=== PATIENT | male | born 1950 | race Caucasian/White ===

== ENCOUNTER 2016-10-10 09:35 | Inpatient (IN) | payer MEDICARE, MEDICAID ==
[~2016-10-10] VITALS: Ht 175.3 cm; Wt 74.0 kg
[2016-10-10 09:37] VITALS: BP 169/77; PULSE 77; RESP 16; TEMP 98.1; O2SAT 97
[2016-10-10 09:48] VITALS: BP 173/72; PULSE 85; RESP 16; O2SAT 97
[2016-10-10] MEDS ORDERED: LISI-515 PO (09:51)
--- NOTE | 2016-10-10 10:13 | PD ---
HPI Chief Complaint: Skin Problem Time Seen by Provider: 10:04 Travel History International Travel<30 days: No Contact w/Intl Traveler<30days: No Traveled to known affect area: No History of Present Illness HPI This is a 66-year-old male who has no reported past with history, presents today with complaints of right foot pain and swelling. The patient states he started experiencing redness and blistering of his right lower extremity. He states that he was seen and evaluated at [facility]. He reports they gave him 3 bags of antibiotics. He states that they discharged him and told him if he needed pain medications that he should come to [place]. He denies any fevers, chills. He reports increasing pain and swelling and increasing size of the blisters of his right foot. [facility] Past Medical History Diminished Hearing: No Integumentary: Yes Influenza Vaccination: No Past Surgical History Tonsillectomy: Yes Other Surgery: Yes (knee 2x-LEFT, I/D RECTAL ABSCESS, POLYPS REMOVED, VASECTOMY ) Social History Alcohol Use: Yes (4-6 beers daily ) Tobacco Use: Yes (1 PPD) Substance Use: Yes (MARIJUANA) Allergies-Medications (Allergen,Severity, Reaction): Coded Allergies: No Known Allergies (Verified , 10/10/16) Reported Meds & Prescriptions Reported Meds & Active Scripts Active Reported Lisinopril 20 Mg Tab 20 Mg PO DAILY Review of Systems Except as stated in HPI: all other systems reviewed are Neg General / Constitutional: No: Fever, Chills HENT: No: Headaches, Lightheadedness, Neck Pain Cardiovascular: No: Chest Pain or Discomfort, Palpitations Respiratory: No: Cough, Shortness of Breath Gastrointestinal: No: Nausea, Vomiting Genitourinary: No: Frequency, Dysuria Musculoskeletal: Positive: Pain (right foot and meza), No: Weakness Skin: Positive Lesions (blisters and redness to the right foot.), Positive Other (redness and warmth to the right foot and meza.) Neurologic: No: Weakness, Headache Physical Exam Narrative GENERAL: Well-developed well-nourished male in no acute respiratory distress. Patient is complaining of pain to his right lower extremity SKIN: Focused skin assessment warm/dry. HEAD: Atraumatic. Normocephalic. EYES: No scleral icterus. No injection or drainage. ENT: No nasal bleeding or discharge. Mucous membranes pink and moist. NECK: Trachea midline. Supple. CARDIOVASCULAR: Regular rate and rhythm. No murmur appreciated. RESPIRATORY: No accessory muscle use. Clear to auscultation. Breath sounds equal bilaterally. GASTROINTESTINAL: Abdomen soft, non-tender, nondistended. MUSCULOSKELETAL: No obvious deformities. On examination the patient's right lower extremity, there is diffuse redness and warmth to the right lower extremity from the foot to the mid meza. This has obvious cellulitis. There is also blistering noted to the dorsum of his foot. There is some serous sanguinous drainage noted. NEUROLOGICAL: Awake and alert. No obvious cranial nerve deficits. Motor grossly within normal limits. Normal speech. Data Data Last Documented VS Vital Signs Date Time Temp Pulse Resp B/P Pulse Ox O2 Delivery O2 Flow Rate FiO2 10/10/16 11:27 79 16 143/63 96 Room Air 10/10/16 09:37 98.1 Orders Basic Metabolic Panel (Bmp) (10/10/16 10:04) Complete Blood Count With Diff (10/10/16 10:04) Blood Culture (10/10/16 10:04) Iv Access Insert/Monitor (10/10/16 10:04) Ketorolac Inj (Toradol Inj) (10/10/16 10:15) Tetanus/Diphtheria Tox Adult (Tetanus/Di (10/10/16 10:15) Vancomycin Inj (Vancomycin Inj) (10/10/16 10:15) Admit Order (Ed Use Only) (10/10/16 12:46) Sodium Chlor 0.9% 1000 Ml Inj (Ns 1000 M (10/10/16 13:00) Labs Laboratory Tests Test 10/10/16 10:10 White Blood Count 33.9 TH/MM3 Red Blood Count 5.02 MIL/MM3 Hemoglobin 9.5 GM/DL Hematocrit 30.8 % Mean Corpuscular Volume 61.3 FL Mean Corpuscular Hemoglobin 18.8 PG Mean Corpuscular Hemoglobin 30.7 % Concent Red Cell Distribution Width 20.8 % Platelet Count 405 TH/MM3 Mean Platelet Volume 8.6 FL Neutrophils (%) (Auto) 88.5 % Lymphocytes (%) (Auto) 3.0 % Monocytes (%) (Auto) 8.2 % Eosinophils (%) (Auto) 0.1 % Basophils (%) (Auto) 0.2 % Neutrophils # (Auto) 30.0 TH/MM3 Lymphocytes # (Auto) 1.0 TH/MM3 Monocytes # (Auto) 2.8 TH/MM3 Eosinophils # (Auto) 0.0 TH/MM3 Basophils # (Auto) 0.1 TH/MM3 CBC Comment AUTO DIFF Differential Total Cells 100 Counted Neutrophils % (Manual) 64 % Band Neutrophils % 21 % Lymphocytes % 5 % Monocytes % 9 % Eosinophils % 1 % Neutrophils # (Manual) 28.8 TH/MM3 Differential Comment FINAL DIFF MANUAL Platelet Estimate NORMAL Platelet Morphology Comment NORMAL Red Cell Morphology Comment Sodium Level 128 MEQ/L Potassium Level 3.8 MEQ/L Chloride Level 93 MEQ/L Carbon Dioxide Level 22.8 MEQ/L Anion Gap 12 MEQ/L Blood Urea Nitrogen 3 MG/DL Creatinine 0.63 MG/DL Estimat Glomerular Filtration 127 ML/MIN Rate Random Glucose 98 MG/DL Calcium Level 9.0 MG/DL MDM Medical Decision Making Medical Screen Exam Complete: Yes Emergency Medical Condition: Yes Differential Diagnosis Worsening cellulitis medication reaction versus burn Narrative Course 66-year-old male who presents today with complaints of right lower extremity cellulitis. The patient was seen yesterday at [facility] and given antibiotics per patient. He reports that the swelling, redness and blistering has gotten worse. The patient's white blood cell count was 33,000. He's been given one dose of IVD vancomycin. He'll be admitted to the hospital for continued I V antibiotics. [facility] the [facility]. Patient was also noted to be hyponatremic. Normal saline was initiated in the emergency department. Sepsis Criteria SIRS Criteria (2 or more): Heart rate over 90, WBC > 85266, < 4000 or > 10% bands Sepsis Criteria (SIRS+source): Infect source susp/known Diagnosis Primary Impression: Cellulitis of right lower extremity Additional Impressions: Failure of outpatient treatment Tobacco abuse Hyponatremia Admitting Information Admitting Physician Requests: Admit Shawn Wolf MD Oct 10, 2016 10:13
[2016-10-10] MEDS ORDERED: TETANUS/DIPHTHERIA TOXOID ADULT 0.5 ML VIAL IM ONE (10:15)
[2016-10-10] MEDS ORDERED: KETOROLAC TROMETHAMINE 30 MG/ML (IVP) VIAL IVP ONE (10:15)
[2016-10-10] MEDS ORDERED: VANCOMYCIN INJ 1,000 MG in SODIUM CHLOR 0.9% 250 ML INJ 250 ML IV ONE (10:15)
[2016-10-10 10:40] LABS: BASOPHIL # 0.1 TH/MM3 (0-0.2); BASOPHIL % 0.2 % (0.0-2.0); EOSINOPHIL % 0.1 % (0.0-4.0); HEMATOCRIT 30.8 % (39.0-51.0); MEAN CELL VOLUME 61.3 FL (80.0-100.0); MEAN CORPUSCULAR HEMOGLOBIN 18.8 PG (27.0-34.0); MEAN CORPUSCULAR HGB CONC 30.7 % (32.0-36.0); MONO % 8.2 % (0.0-8.0); NEUT % 88.5 % (16.0-70.0); PLATELET COUNT 405 TH/MM3 (150-450); RED BLOOD COUNT 5.02 MIL/MM3 (4.50-5.90); RED CELL DISTRIBUTION WIDTH 20.8 % (11.6-17.2); WHITE BLOOD COUNT 33.9 TH/MM3 (4.0-11.0)
[2016-10-10 10:46] LABS: HEMO FLAGS AUTO DIFF
[2016-10-10 10:59] LABS: BICARBONATE 22.8 MEQ/L (21.0-32.0); POTASSIUM 3.8 MEQ/L (3.5-5.1)
[2016-10-10 11:13] LABS: BANDS 21 % (0-6); EOSINOPHILS 1 % (0-4); NEUTROPHIL # MANUAL DIFF 28.8 TH/MM3 (1.8-7.7); POLYS (SEG NEUTROPHILS) 64 % (16-70); WBC DIFF SAMPLE 100
[2016-10-10 11:15] LABS: PLATELET ESTIMATE SMEAR NORMAL (NORMAL); PLATELET MORPHOLOGY NORMAL (NORMAL); SCAN/DIFF FINAL DIFF MANUAL
[2016-10-10 11:27] VITALS: BP 143/63; PULSE 79; RESP 16; O2SAT 96
[2016-10-10] MEDS ORDERED: SODIUM CHLOR 0.9% 1000 ML INJ 1,000 ML IV SCH ×2 (12:59→13:00)
[2016-10-10] MEDS ORDERED: SODIUM CHLORIDE 0.9% FLUSH 10 ML FLUSH IV FLUSH PRN (13:00)
[2016-10-10] MEDS ORDERED: MAGNESIUM HYDROXIDE SUSP 30 ML CUP PO PRN (13:00)
[2016-10-10] MEDS ORDERED: RESP: ALBUTEROL 2.5 MG/IPRATROPIUM 0.5 MG NEB (PRN) NEB (13:00)
[2016-10-10] MEDS ORDERED: NALOXONE HCL 0.4 MG/ML AMP IV PRN (13:00)
[2016-10-10] MEDS ORDERED: ACETAMINOPHEN/HYDROcodone 325 MG/5 MG TAB PO PRN (13:00)
[2016-10-10] MEDS ORDERED: ONDANSETRON HCL 4 MG/2 ML VIAL IVP PRN (13:00)
[2016-10-10] MEDS ORDERED: ACETAMINOPHEN 325 MG TAB PO PRN ×2 (13:00)
[2016-10-10] MEDS: ENOXAPARIN SODIUM 30 MG/0.3 ML SYRINGE SQ SCH (13:44)
--- NOTE | 2016-10-10 14:09 | HHI.HP ---
[facility] Spenser Lacy MD Admission Diagnosis right lower extremity cellulitis. Leukocytosis. Hyponatremia. Diagnoses: (1) Cellulitis of right lower extremity (2) Failure of outpatient treatment (3) Benign hypertension Chief Complaint: Right lower extremity pain and swelling Travel History International Travel<30 Days: No Contact w/Intl Traveler <30 Da: No Traveled to Known Affected Are: No History of Present Illness 66-year-old male with a history of hypertension presented to the ED for evaluation of right lower extremity pain and swelling along with blister 4 days , was seen yesterday at an outside hospital and was treated with 3 bags of antibiotics and advised to seek medical attention to [facility] if no improvement. He reported worsening right lower extremity as well as redness and blister formations. The pain is throbbing and causing inability to put weight on his right lower extremity. Denies any febrile episode. He has no chest pain or shortness of breath. He also denies any trauma or insect bites. Review of Systems Except as stated in HPI: all other systems reviewed are Neg Past Family Social History Past Medical History Hypertension Past Surgical History Tonsillectomy: Yes knee 2x-LEFT, I/D RECTAL ABSCESS, POLYPS REMOVED, VASECTOMY Reported Medications Lisinopril 20 Mg Tab 20 Mg PO DAILY Allergies: Coded Allergies: No Known Allergies (Verified , 10/10/16) Family History Family history positive for diabetes type 2 Social History Alcohol Use: Yes (4-6 beers daily ) Tobacco Use: Yes (1 PPD) Substance Use: Yes (MARIJUANA) Physical Exam Vital Signs Vital Signs Date Time Temp Pulse Resp B/P Pulse Ox O2 Delivery O2 Flow Rate FiO2 10/10/16 11:27 79 16 143/63 96 Room Air 10/10/16 09:48 85 16 173/72 97 Room Air 10/10/16 09:37 98.1 77 16 169/77 97 Physical Exam GENERAL: This is a well-nourished, well-developed patient, in no apparent distress. SKIN: Right lower extremity with blisters and erythema HEAD: Atraumatic. Normocephalic. No temporal or scalp tenderness. EYES: Pupils equal round and reactive. Extraocular motions intact. No scleral icterus. No injection or drainage. ENT: Nose without bleeding, purulent drainage or septal hematoma. Throat without erythema, tonsillar hypertrophy or exudate. Uvula midline. Airway patent. NECK: Trachea midline. No JVD or lymphadenopathy. Supple, nontender, no meningeal signs. CARDIOVASCULAR: Regular rate and rhythm with II/ JADE RESPIRATORY: Clear to auscultation. Breath sounds equal bilaterally. No wheezes , rales, or rhonchi. GASTROINTESTINAL: Abdomen soft, non-tender, nondistended. No hepato-splenomegaly , or palpable masses. No guarding. MUSCULOSKELETAL: Extremities without clubbing, cyanosis, or edema. No joint tenderness, effusion, or edema noted. No calf tenderness. Negative Homans sign bilaterally. NEUROLOGICAL: Awake and alert. Cranial nerves II through XII intact. Motor and sensory grossly within normal limits. Five out of 5 muscle strength in all muscle groups. Normal speech. Laboratory Laboratory Tests Test 10/10/16 10/10/16 10:10 13:00 White Blood Count 33.9 Red Blood Count 5.02 Hemoglobin 9.5 Hematocrit 30.8 Mean Corpuscular Volume 61.3 Mean Corpuscular Hemoglobin 18.8 Mean Corpuscular Hemoglobin 30.7 Concent Red Cell Distribution Width 20.8 Platelet Count 405 Mean Platelet Volume 8.6 Neutrophils (%) (Auto) 88.5 Lymphocytes (%) (Auto) 3.0 Monocytes (%) (Auto) 8.2 Eosinophils (%) (Auto) 0.1 Basophils (%) (Auto) 0.2 Neutrophils # (Auto) 30.0 Lymphocytes # (Auto) 1.0 Monocytes # (Auto) 2.8 Eosinophils # (Auto) 0.0 Basophils # (Auto) 0.1 CBC Comment AUTO DIFF Differential Total Cells 100 Counted Neutrophils % (Manual) 64 Band Neutrophils % 21 Lymphocytes % 5 Monocytes % 9 Eosinophils % 1 Neutrophils # (Manual) 28.8 Differential Comment FINAL DIFF MANUAL Platelet Estimate NORMAL Platelet Morphology Comment NORMAL Red Cell Morphology Comment Sodium Level 128 Potassium Level 3.8 Chloride Level 93 Carbon Dioxide Level 22.8 Anion Gap 12 Blood Urea Nitrogen 3 Creatinine 0.63 Estimat Glomerular Filtration 127 Rate Random Glucose 98 Calcium Level 9.0 Lactic Acid Level 1.4 Date/Time Procedure Status Source Growth 10/10/16 10:10 Aerobic Blood Culture Received Blood Peripheral Pending 10/10/16 10:10 Anaerobic Blood Culture Received Blood Peripheral Pending Result Diagram: 10/10/16 1010 10/10/16 1010 Assessment and Plan Problem List: (1) Cellulitis of right lower extremity ICD Code: L03.115 Status: Acute (2) Failure of outpatient treatment ICD Code: Z78.9 Status: Acute (3) Benign hypertension ICD Code: I10 Status: Acute (4) Tobacco abuse ICD Code: Z72.0 Status: Acute (5) Tobacco abuse counseling ICD Code: Z71.6 Status: Acute (6) Normocytic normochromic anemia ICD Code: D64.9 Status: Acute Assessment and Plan 66-year-old man with Cellulitis right lower extremity Failed outpatient therapy Start vancomycin and cefepime IV Check right lower extremity ultrasound Parenteral pain medication when necessary Tobacco abuse Tobacco counseling provided Start nicotine patch Normochromic normocytic anemia of chronic disease Monitor H&H Benign hypertension Resume outpatient medication including lisinopril DVT prophylaxis: Lovenox Code Status Full code Discussed Condition With Patient, ED physician Physician Certification 2 Midnight Certification Type: Admission for Inpatient Services Order for Inpatient Services The services are ordered in accordance with Medicare regulations or non- Medicare payer requirements, as applicable. In the case of services not specified as inpatient-only, they are appropriately provided as inpatient services in accordance with the 2-midnight benchmark. Estimated LOS (days): 2 days is the estimated time the patient will need to remain in the hospital, assuming treatment plan goals are met and no additional complications. Post-Hospital Plan: Not yet determined Ben Rubio MD Oct 10, 2016 14:09
[2016-10-10 14:40] VITALS: BP 178/81; PULSE 92; RESP 20; TEMP 98.4; O2SAT 99
[2016-10-10] MEDS ORDERED: MORPHINE SULFATE 4 MG/ML INJ IV PUSH PRN (14:45)
[2016-10-10] MEDS: REMOVE OLD PATCH T-DERMAL SCH (14:45)
[2016-10-10] MEDS: CEFEPIME INJ 2,000 MG in SODIUM CHLORIDE 0.9% INJ 100 ML IV SCH (15:52)
[2016-10-10] MEDS: NICOTINE 21 MG/24 HR PATCH T-DERMAL SCH (15:52)
[2016-10-10 16:00] VITALS: BP 177/75; PULSE 99; RESP 20; TEMP 99; O2SAT 99
--- NOTE | 2016-10-10 17:36 | RADRPT ---
EXAM DATE/TIME: 10/10/2016 16:59 [facility] COMPARISON: No previous studies available for comparison. INDICATIONS : Right leg fluid collection. MEDICAL HISTORY : Substance use. Alcohol use. Tobacco use. SURGICAL HISTORY : Tonsillectomy. Left knee x2. I/D rectal abscess. Polyps removed. Vasectomy. ENCOUNTER: Initial ACUITY: 4-6 days PAIN SCORE: 6/10 LOCATION: Right foot. AREA EVALUATED: Right anterior foot. FINDINGS: Ultrasound was targeted to an area of swelling dorsal aspect of the foot. There is thickening of the soft tissues and edematous appearance with out a discrete or measurable fluid collection. On color Doppler, there is only mild flow seen in the soft tissues. CONCLUSION: Swallow thick and dorsal soft tissues without focal drainable fluid collection. Dean Mercer MD on October 10, 2016 at 17:32 Board Certified Radiologist. This report was verified electronically.
[2016-10-10] MEDS: ENALAPRILAT 1.25 MG/ML VIAL IV PUSH PRN (18:07)
[2016-10-10 20:00] VITALS: BP 156/70; PULSE 97; RESP 17; TEMP 99.5; O2SAT 96
[2016-10-10] MEDS: SODIUM CHLORIDE 0.9% FLUSH 10 ML FLUSH IV FLUSH SCH (20:05)
[2016-10-10] MEDS: LACTOBACILLUS ACIDOPHILUS TAB PO SCH (20:05)
[2016-10-11] VITALS (8 sets, daily range): BP systolic 126–174; BP diastolic 60–76; PULSE 76–98; RESP 18–20; TEMP 98.1–101.2; O2SAT 90–96
[2016-10-11] MEDS: CEFEPIME INJ 2,000 MG in SODIUM CHLORIDE 0.9% INJ 100 ML IV SCH ×2 (02:43→16:04)
[2016-10-11] MEDS ORDERED: Vancomycin Consult Pharmacy 1 EA OTHER SCH (07:45)
[2016-10-11 08:15] LABS: AUTOMATED NEUTROPHIL # 24.7 TH/MM3 (1.8-7.7); BASOPHIL # 0.3 TH/MM3 (0-0.2); BASOPHIL % 1.2 % (0.0-2.0); EOSINOPHIL # 0.1 TH/MM3 (0-0.4); EOSINOPHIL % 0.3 % (0.0-4.0); HEMATOCRIT 26.3 % (39.0-51.0); LYMPH % 2.9 % (9.0-44.0); LYMPHOCYTE # 0.8 TH/MM3 (1.0-4.8); MEAN CORPUSCULAR HEMOGLOBIN 18.9 PG (27.0-34.0); MONO % 8.8 % (0.0-8.0); NEUT % 86.8 % (16.0-70.0); PLATELET COUNT 382 TH/MM3 (150-450); RED BLOOD COUNT 4.32 MIL/MM3 (4.50-5.90); RED CELL DISTRIBUTION WIDTH 20.9 % (11.6-17.2); WHITE BLOOD COUNT 28.5 TH/MM3 (4.0-11.0)
[2016-10-11] MEDS: LACTOBACILLUS ACIDOPHILUS TAB PO SCH ×2 (08:16→21:33)
[2016-10-11] MEDS: LISINOPRIL 20 MG TAB PO SCH (08:16)
[2016-10-11] MEDS: REMOVE OLD PATCH T-DERMAL SCH (08:17)
[2016-10-11] MEDS: NICOTINE 21 MG/24 HR PATCH T-DERMAL SCH (08:17)
[2016-10-11] MEDS: SODIUM CHLORIDE 0.9% FLUSH 10 ML FLUSH IV FLUSH SCH ×2 (08:20→21:33)
[2016-10-11 08:27] LABS: HEMO FLAGS AUTO DIFF
[2016-10-11 08:49] LABS: ALT (GPT) 11 U/L (12-78); ANION GAP 11 MEQ/L (5-15); AST (GOT) 9 U/L (15-37); BICARBONATE 24.5 MEQ/L (21.0-32.0); BLOOD UREA NITROGEN 4 MG/DL (7-18); CHLORIDE 96 MEQ/L (98-107); GLOMERULAR FILTRATION RATE 163 ML/MIN (>89); POTASSIUM 3.2 MEQ/L (3.5-5.1); SODIUM (NA) 131 MEQ/L (136-145)
[2016-10-11 08:51] LABS: ALKALINE PHOSPHATASE 97 U/L (45-117); TOTAL BILIRUBIN ADULT 0.5 MG/DL (0.2-1.0)
[2016-10-11 09:09] LABS: BANDS 17 % (0-6); NEUTROPHIL # MANUAL DIFF 26.8 TH/MM3 (1.8-7.7); POLYS (SEG NEUTROPHILS) 77 % (16-70); WBC DIFF SAMPLE 100
[2016-10-11 09:10] LABS: ACANTHOCYTES OCC (NORMAL)
[2016-10-11 09:11] LABS: PLATELET ESTIMATE SMEAR HIGH (NORMAL); PLATELET MORPHOLOGY ENLARGED (NORMAL); SCAN/DIFF FINAL DIFF MANUAL
[2016-10-11] MEDS: VANCOMYCIN INJ 1,250 MG in SODIUM CHLOR 0.9% 250 ML INJ 250 ML IV SCH ×2 (10:28→21:35)
[2016-10-11] MEDS: ACETAMINOPHEN/HYDROcodone 325 MG/7.5 MG TAB PO PRN ×2 (10:29→16:04)
--- NOTE | 2016-10-11 13:56 | HHI.PR ---
Subjective Remarks Follow-up cellulitis right foot 10/11/16-patient seen and examined him a report improvement of right foot swelling and pain as well as redness. Currently afebrile. Objective Vitals Vital Signs Date Time Temp Pulse Resp B/P Pulse Ox O2 Delivery O2 Flow Rate FiO2 10/11/16 10:19 92 10/11/16 08:00 98.8 86 20 174/76 95 10/11/16 04:00 99.7 94 18 126/60 96 10/11/16 00:00 98.1 79 18 130/61 96 10/10/16 20:00 99.5 97 17 156/70 96 10/10/16 16:00 99.0 99 20 177/75 99 10/10/16 14:40 98.4 92 20 178/81 99 I/O 10/10/16 10/10/16 10/10/16 10/11/16 10/11/16 10/11/16 07:00 15:00 23:00 07:00 15:00 23:00 Intake Total 480 ml 240 ml Output Total 250 ml 700 ml Balance 230 ml -460 ml Intake Oral 480 ml 240 ml Output Urine Total 250 ml 700 ml Result Diagram: 10/11/16 0755 10/11/16 0755 Imaging Last Impressions Lower Extremity Ultrasound 10/10/16 0000 Signed Impressions: Service Date/Time: Monday, October 10, 2016 16:59 - CONCLUSION: Swallow thick and dorsal soft tissues without focal drainable fluid collection. Dean Mercer MD Objective Remarks GENERAL: NAD SKIN: Warm and dry.Right lower extremity with blisters and erythema HEAD: Normocephalic. EYES: No scleral icterus. No injection or drainage. NECK: Supple, trachea midline. No JVD or lymphadenopathy. CARDIOVASCULAR: Regular rate and rhythm without murmurs, gallops, or rubs. RESPIRATORY: Breath sounds equal bilaterally. No accessory muscle use. GASTROINTESTINAL: Abdomen soft, non-tender, nondistended. MUSCULOSKELETAL: No cyanosis, or edema. BACK: Nontender without obvious deformity. No CVA tenderness. A/P Problem List: (1) Cellulitis of right lower extremity ICD Code: L03.115 Status: Acute (2) Failure of outpatient treatment ICD Code: Z78.9 Status: Acute (3) Benign hypertension ICD Code: I10 Status: Acute (4) Tobacco abuse ICD Code: Z72.0 Status: Acute (5) Tobacco abuse counseling ICD Code: Z71.6 Status: Acute (6) Normocytic normochromic anemia ICD Code: D64.9 Status: Acute Assessment and Plan 66-year-old man with Cellulitis right lower extremity Failed outpatient therapy Continue vancomycin and cefepime IV Right lower extremity ultrasound noted and reviewed by me with finding of Swallow thick and dorsal soft tissues without focal drainable fluid collection. Parenteral pain medication when necessary Leukocytosis improving Tobacco abuse Tobacco counseling provided Continue nicotine patch Normochromic normocytic anemia of chronic disease Monitor H&H Benign hypertension Continue outpatient medication including lisinopril Hypokalemia Give potassium 60 mEq 1 now and monitor DVT prophylaxis: Ben Doherty MD Oct 11, 2016 13:56
[2016-10-11] MEDS ORDERED: POTASSIUM CHLORIDE 20 MEQ CONTROLLED RELEASE TAB PO ONE (14:00)
[2016-10-11] MEDS: ENOXAPARIN SODIUM 30 MG/0.3 ML SYRINGE SQ SCH (16:04)
[2016-10-11] MEDS: ENALAPRILAT 1.25 MG/ML VIAL IV PUSH PRN (23:16)
[2016-10-12] MEDS: CEFEPIME INJ 2,000 MG in SODIUM CHLORIDE 0.9% INJ 100 ML IV SCH ×2 (02:49→14:44)
[2016-10-12 04:55] VITALS: BP 154/70; PULSE 84; RESP 18; TEMP 98.2; O2SAT 90
[2016-10-12 06:59] LABS: AUTOMATED NEUTROPHIL # 21.7 TH/MM3 (1.8-7.7); BASOPHIL # 0.3 TH/MM3 (0-0.2); BASOPHIL % 1.3 % (0.0-2.0); EOSINOPHIL # 0.2 TH/MM3 (0-0.4); EOSINOPHIL % 0.7 % (0.0-4.0); HEMATOCRIT 27.8 % (39.0-51.0); MEAN CELL VOLUME 60.2 FL (80.0-100.0); MEAN CORPUSCULAR HEMOGLOBIN 18.9 PG (27.0-34.0); MEAN CORPUSCULAR HGB CONC 31.4 % (32.0-36.0); PLATELET COUNT 400 TH/MM3 (150-450); RED BLOOD COUNT 4.62 MIL/MM3 (4.50-5.90); WHITE BLOOD COUNT 25.6 TH/MM3 (4.0-11.0)
[2016-10-12 07:01] LABS: HEMO FLAGS AUTO DIFF
[2016-10-12 07:22] LABS: BICARBONATE 26.8 MEQ/L (21.0-32.0); POTASSIUM 3.7 MEQ/L (3.5-5.1)
[2016-10-12 08:00] VITALS: BP 177/74; PULSE 85; RESP 19; TEMP 99.4; O2SAT 90
[2016-10-12] MEDS: LACTOBACILLUS ACIDOPHILUS TAB PO SCH ×2 (08:02→19:47)
[2016-10-12] MEDS: NICOTINE 21 MG/24 HR PATCH T-DERMAL SCH (08:02)
[2016-10-12] MEDS: SODIUM CHLORIDE 0.9% FLUSH 10 ML FLUSH IV FLUSH SCH ×2 (08:02→19:47)
[2016-10-12] MEDS: REMOVE OLD PATCH T-DERMAL SCH (08:02)
[2016-10-12] MEDS: LISINOPRIL 20 MG TAB PO SCH (08:02)
[2016-10-12 08:33] LABS: PLATELET ESTIMATE SMEAR HIGH (NORMAL); SPHEROCYTES 1+ (NORMAL)
[2016-10-12 08:34] LABS: PLATELET MORPHOLOGY ENLARGED (NORMAL); SCAN/DIFF AUTO DIFF CONFIRMED
[2016-10-12] MEDS: VANCOMYCIN INJ 1,250 MG in SODIUM CHLOR 0.9% 250 ML INJ 250 ML IV SCH ×2 (09:15→19:53)
[2016-10-12] MEDS: ENALAPRILAT 1.25 MG/ML VIAL IV PUSH PRN (09:50)
[2016-10-12 12:00] VITALS: BP 181/84; PULSE 96; RESP 19; TEMP 100.7; O2SAT 90
--- NOTE | 2016-10-12 12:32 | HHI.PR ---
Subjective Remarks Follow-up cellulitis right foot 10/11/16-patient seen and examined him a report improvement of right foot swelling and pain as well as redness. Currently afebrile. 10/12/16-patient seen and examined, Tmax 101.2 at 11 PM however currently afebrile. Reports significant decrease in lower extremity swelling as well as pain. Objective Vitals Vital Signs Date Time Temp Pulse Resp B/P Pulse Ox O2 Delivery O2 Flow Rate FiO2 10/12/16 08:00 99.4 85 19 177/74 90 10/12/16 04:55 98.2 84 18 154/70 90 10/11/16 23:00 101.2 98 18 173/73 90 10/11/16 21:06 99.8 82 18 170/76 10/11/16 16:00 98.4 80 20 146/66 95 I/O 10/11/16 10/11/16 10/11/16 10/12/16 10/12/16 10/12/16 07:00 15:00 23:00 07:00 15:00 23:00 Intake Total 240 ml 840 ml Output Total 700 ml 1525 ml 425 ml 450 ml Balance -460 ml -685 ml -425 ml -450 ml Intake Oral 240 ml 840 ml Output Urine Total 700 ml 1525 ml 425 ml 450 ml Result Diagram: 10/12/16 0646 10/12/16 0646 Imaging Last Impressions Lower Extremity Ultrasound 10/10/16 0000 Signed Impressions: Service Date/Time: Monday, October 10, 2016 16:59 - CONCLUSION: Swallow thick and dorsal soft tissues without focal drainable fluid collection. Dean Mercer MD Objective Remarks GENERAL: NAD SKIN: Warm and dry.Right lower extremity with blisters and erythema HEAD: Normocephalic. EYES: No scleral icterus. No injection or drainage. NECK: Supple, trachea midline. No JVD or lymphadenopathy. CARDIOVASCULAR: Regular rate and rhythm without murmurs, gallops, or rubs. RESPIRATORY: Breath sounds equal bilaterally. No accessory muscle use. GASTROINTESTINAL: Abdomen soft, non-tender, nondistended. MUSCULOSKELETAL: No cyanosis, or edema. BACK: Nontender without obvious deformity. No CVA tenderness. A/P Problem List: (1) Cellulitis of right lower extremity ICD Code: L03.115 Status: Acute (2) Failure of outpatient treatment ICD Code: Z78.9 Status: Acute (3) Benign hypertension ICD Code: I10 Status: Acute (4) Tobacco abuse ICD Code: Z72.0 Status: Acute (5) Tobacco abuse counseling ICD Code: Z71.6 Status: Acute (6) Normocytic normochromic anemia ICD Code: D64.9 Status: Acute Assessment and Plan 66-year-old man with Cellulitis right lower extremity Failed outpatient therapy Continue vancomycin and cefepime IV pending culture report Right lower extremity ultrasound with finding of Swallow thick and dorsal soft tissues without focal drainable fluid collection. Parenteral pain medication when necessary Leukocytosis improving Tobacco abuse Tobacco counseling provided Continue nicotine patch Normochromic normocytic anemia of chronic disease Monitor H&H Benign hypertension-labile BP Start low-dose Lopressor 25 mg every 12H and continue lisinopril Hypokalemia Resolved post treatment DVT prophylaxis: Ben Doherty MD Oct 12, 2016 12:32
[2016-10-12] MEDS: ENOXAPARIN SODIUM 30 MG/0.3 ML SYRINGE SQ SCH (12:54)
[2016-10-12] MEDS: METOPROLOL TARTRATE 25 MG TAB PO SCH ×2 (12:54→19:46)
[2016-10-12] MEDS ORDERED: FUROSEMIDE 20 MG/2 ML VIAL IV PUSH ONE (14:00)
[2016-10-12] MEDS: ACETAMINOPHEN/HYDROcodone 325 MG/7.5 MG TAB PO PRN (14:51)
[2016-10-12 16:55] VITALS: BP 164/79; PULSE 75; RESP 19; TEMP 97.2; O2SAT 95
[2016-10-12 20:27] VITALS: BP 182/85; PULSE 76; RESP 16; TEMP 98.2; O2SAT 90
[2016-10-12] MEDS ORDERED: PHARMACY ORDERED LAB ONE (20:45)
[2016-10-13 00:33] VITALS: BP 173/77; PULSE 82; RESP 18; TEMP 97.8; O2SAT 95
[2016-10-13] MEDS: ENALAPRILAT 1.25 MG/ML VIAL IV PUSH PRN (00:40)
[2016-10-13] MEDS: CEFEPIME INJ 2,000 MG in SODIUM CHLORIDE 0.9% INJ 100 ML IV SCH ×2 (03:14→14:52)
[2016-10-13] MEDS: VANCOMYCIN INJ 1,250 MG in SODIUM CHLOR 0.9% 250 ML INJ 250 ML IV SCH ×2 (03:14→12:16)
[2016-10-13] MEDS: ACETAMINOPHEN/HYDROcodone 325 MG/7.5 MG TAB PO PRN ×4 (04:57→18:54)
[2016-10-13 05:27] VITALS: BP 165/76; PULSE 83; RESP 18; TEMP 99; O2SAT 95
[2016-10-13] MEDS: LACTOBACILLUS ACIDOPHILUS TAB PO SCH ×2 (08:21→22:00)
[2016-10-13] MEDS: SODIUM CHLORIDE 0.9% FLUSH 10 ML FLUSH IV FLUSH SCH ×2 (08:22→22:09)
[2016-10-13] MEDS: METOPROLOL TARTRATE 25 MG TAB PO SCH ×2 (08:22→22:00)
[2016-10-13] MEDS: LISINOPRIL 20 MG TAB PO SCH (08:22)
[2016-10-13] MEDS: NICOTINE 21 MG/24 HR PATCH T-DERMAL SCH (08:22)
[2016-10-13] MEDS: REMOVE OLD PATCH T-DERMAL SCH (08:24)
[2016-10-13 08:31] VITALS: BP 169/79; PULSE 72; RESP 16; TEMP 97.3
[2016-10-13] MEDS ORDERED: SOD PHOSPHATE/SOD BIPHOSPHATE (ADULT) ENEMA 133ML RECTAL ONE (11:15)
--- NOTE | 2016-10-13 11:27 | HHI.PR ---
Subjective Remarks Follow-up for right foot/ankle infection Patient has no complaints. He is asking for enema. He stated that he does well with enemas. He does not want take any oral medication for constipation. He stated that the swelling has improved in his right foot. Otherwise he remains afebrile he has no complaints. Objective Vitals Vital Signs Date Time Temp Pulse Resp B/P Pulse Ox O2 Delivery O2 Flow Rate FiO2 10/13/16 08:31 97.3 72 16 169/79 10/13/16 05:27 99.0 83 18 165/76 95 10/13/16 00:33 97.8 82 18 173/77 95 10/12/16 20:27 98.2 76 16 182/85 90 10/12/16 16:55 97.2 75 19 164/79 95 10/12/16 12:00 100.7 96 19 181/84 90 I/O 10/12/16 10/12/16 10/12/16 10/13/16 10/13/16 10/13/16 06:59 14:59 22:59 06:59 14:59 22:59 Intake Total 840 ml 730 ml 720 ml Output Total 425 ml 850 ml 1170 ml 900 ml 300 ml Balance -425 ml -10 ml -440 ml -180 ml -300 ml Intake Oral 480 ml 600 ml 720 ml IV Total 360 ml 130 ml Output Urine Total 425 ml 850 ml 1170 ml 900 ml 300 ml # Voids 5 # Bowel Movements 0 0 Result Diagram: 10/12/1646 10/12/16645 Objective Remarks GENERAL: NAD SKIN: Warm and dry.Right lower extremity with blisters and erythema. Ecchymosis of the right foot. Positive tenderness to palpation but that has improved. CARDIOVASCULAR: Regular rate and rhythm without murmurs, gallops, or rubs. RESPIRATORY: Breath sounds equal bilaterally. No accessory muscle use. GASTROINTESTINAL: Abdomen soft, non-tender, nondistended. Medications and IVs Current Medications Ketorolac Tromethamine (Toradol Inj) 30 mg ONCE ONCE IVP Last administered on 10/10/16 10:48; Start 10/10/16 at 10:15; Stop 10/10/16 at 10:16; Status DC Tetanus/ Diphtheria Toxoids 0.5 ml 0.5 ml ONCE ONCE IM Last administered on 10:56; Start 10/10/16 at 10:15; Stop 10/10/16 at 10:16; Status DC Vancomycin HCl 1000 mg/Sodium Chloride 250 ml @ 250 mls/hr ONCE ONCE IV Last administered on 10/10/16 10:47; Start 10/10/16 at 10:15; Stop 10/10/16 at 11:14 ; Status DC Sodium Chloride 1,000 ml @ 125 mls/hr Q8H IV Last administered on 10/10/16 12 :55; Start 10/10/16 at 13:00; Stop 10/10/16 at 13:06; Status DC Sodium Chloride (NS 1000 ml Inj) 1,000 ml @ 70 mls/hr [id number] IV Last administered on 10/10/16 13:44; Start 10/10/16 at 12:59; Stop 10/10/16 at 14:37 ; Status DC Sodium Chloride (NS Flush) 2 ml UNSCH PRN IV FLUSH FLUSH AFTER USING IV ACCESS ; Start 10/10/16 at 13:00 Sodium Chloride (NS Flush) 2 ml BID IV FLUSH Last administered on 10/12/16 19: 47; Start 10/10/16 at 21:00 Acetaminophen (Tylenol) 650 mg Q4H PRN PO TEMP > 100.4 Last administered on 23:15; Start 10/10/16 at 13:00 Ondansetron HCl (Zofran Inj) 4 mg Q6H PRN IVP NAUSEA OR VOMITING Last administered on 10/13/16 00:40; Start 10/10/16 at 13:00 Enoxaparin Sodium (Lovenox Inj) 30 mg Q24H SQ Last administered on 10/12/16 12 :54; Start 10/10/16 at 13:00 Acetaminophen (Tylenol) 650 mg Q6H PRN PO PAIN SCALE 1 TO 2; Start 10/10/16 at 13:00 Acetaminophen/ Hydrocodone Bitart ([place] 5-325 Mg) 1 tab Q4H PRN PO PAIN SCALE 3 TO 5 Last administered on 10/10/16 18:07; Start 10/10/16 at 13:00 Acetaminophen/ Hydrocodone Bitart ([place] 7.5-325 Mg) 1 tab Q4H PRN PO PAIN SCALE 6 TO 10 Last administered on 10/13/16 04:57; Start 10/10/16 at 13:00 Naloxone HCl (Narcan Inj) 0.4 mg UNSCH PRN IV SEE LABEL COMMENTS; Start at 13:00 Magnesium Hydroxide (Milk Of [place] Liq) 30 ml Q12H PRN PO MILD - MODERATE CONSTIPATION; Start 10/10/16 at 13:00 Albuterol/ Ipratropium (Duoneb Neb) 1 ampule Q2HR NEB PRN NEB SOB/WHEEZING; Start 10/10/16 at 13:00 Enalaprilat (Vasotec Inj) 1.25 mg Q6H PRN IV PUSH SBP>160, DBP>90 Last administered on 10/13/16 00:40; Start 10/10/16 at 13:00 Lisinopril (Prinivil) 20 mg DAILY PO Last administered on 10/13/16 08:22; Start 10/11/16 at 09:00 Nicotine (Habitrol 21 Mg Patch.24 Hr) 1 patch DAILY T-DERMAL Last administered on 10/13/16 08:22; Start 10/10/16 at 14:45 Miscellaneous Information 1 DAILY T-DERMAL Last administered on 10/13/16 08:24 ; Start 10/10/16 at 14:45 Morphine Sulfate 2 mg 2 mg Q6H PRN IV PUSH BREAKTHROUGH PAIN; Start 10/10/16 at 14:45 Cefepime HCl/ Sodium Chloride (Maxipime Inj/NS Inj) 100 ml @ 200 mls/hr Q12H IV Last administered on 10/13/16 03:14; Start 10/10/16 at 15:00 Lactobacillus Acidophilus 1 tab 1 tab Q12HR PO Last administered on 10/13/16 08:21; Start 10/10/16 at 21:00 Pharmacy Profile Note 0 ml @ 0 mls/hr UNSCH OTHER ; Start 10/11/16 at 07:45 Vancomycin HCl/ Sodium Chloride (Vancomycin Inj/ NS 250 ml Inj) 262.5 ml @ 262.5 mls/ hr Q12H IV Last administered on 10/12/16 19:53; Start 10/11/16 at 09:00; Stop 10/12/16 at 22:25; Status DC Miscellaneous Information SPECIFIC LAB TO BE ... ONCE ONCE .XX Last administered on 10/12/16 19:52; Start 10/12/16 at 20:45; Stop 10/12/16 at 20:46 ; Status DC Potassium Chloride (KCl) 60 meq ONCE ONCE PO Last administered on 10/11/16 16 :04; Start 10/11/16 at 14:00; Stop 10/11/16 at 14:01; Status DC Metoprolol Tartrate (Lopressor) 25 mg Q12HR PO Last administered on 10/13/16 08:22; Start 10/12/16 at 13:00 Furosemide 20 mg 20 mg ONCE ONCE IV PUSH Last administered on 10/12/16 14:45 ; Start 10/12/16 at 14:00; Stop 10/12/16 at 14:01; Status DC Vancomycin HCl/ Sodium Chloride (Vancomycin Inj/ NS 250 ml Inj) 262.5 ml @ 262.5 mls/ hr Q8H IV Last administered on 10/13/16 03:14; Start 10/13/16 at 04 :00 Miscellaneous Information SPECIFIC LAB TO BE MARVA... ONCE ONCE .XX ; Start 10/13 at 19:45; Stop 10/13/16 at 19:46 A/P Problem List: (1) Cellulitis of right lower extremity ICD Code: L03.115 Status: Acute (2) Failure of outpatient treatment ICD Code: Z78.9 Status: Acute (3) Benign hypertension ICD Code: I10 Status: Acute (4) Tobacco abuse ICD Code: Z72.0 Status: Acute (5) Tobacco abuse counseling ICD Code: Z71.6 Status: Acute (6) Normocytic normochromic anemia ICD Code: D64.9 Status: Acute Assessment and Plan 66-year-old man with Cellulitis right lower extremity Failed outpatient therapy on vancomycin and cefepime IV, blood cultures are negative. Right lower extremity ultrasound with finding of Swallow thick and dorsal soft tissues without focal drainable fluid collection. Parenteral pain medication when necessary Leukocytosis improving Consult infectious disease due to the severity of the cellulitis. Tobacco abuse Tobacco counseling provided Continue nicotine patch Normochromic normocytic anemia of chronic disease Monitor H&H Stable. Benign hypertension-labile BP on Lopressor 25 mg every 12H and continue lisinopril Hypokalemia Resolved post treatment DVT prophylaxis: Lovenox Discharge Planning Patient requires IV antibiotics. Will consult infectious disease due to the severity of the cellulitis. Evelia Mccord MD Oct 13, 2016 11:27
[2016-10-13] MEDS: ENOXAPARIN SODIUM 30 MG/0.3 ML SYRINGE SQ SCH (12:16)
[2016-10-13] MEDS ORDERED: BISACODYL 10 MG SUPP RECTAL ONE (12:45)
[2016-10-13 16:00] VITALS: BP 158/77; PULSE 74; RESP 18; TEMP 98.5; O2SAT 91
--- NOTE | 2016-10-13 17:39 | PD.CONS ---
History of Present Illness Service Infectious disease Consult Requested By Dr Sp Mccord Reason for Consult Evaluate patient with severe infection of the right ankle and foot Primary Care Physician Spenser Lacy MD Diagnoses: History of Present Illness Patient seen and examined. Records reviewed. Patient is a 66-year-old male, presented to the hospital for further evaluation of increasing redness, pain, and development of a loose lesion on his ankle. His problems started about 5 days prior to admission when he started experiencing some pain on his right ankle. He didn't think much of it, but over the next several days she started noticing some swelling. One day prior to admission he noted some mild redness developing, with increasing swelling and pain. He had an area like a little hole on his lateral ankle. He went to [place] [facility], and he was given some IV antibiotics, and was instructed to go to any nearby hospital if his symptoms worsen. On the day of admission he continued to have the same swelling and pain, but with increasing redness, and he notices a bullous lesion on his right lateral malleolus. He did not have any fever or chills or sweats. He has not had any sore throat or respiratory complaint. No nausea or vomiting or any urinary complaints. Patient has not really done any wading in any water like a [place], river or beach. On presentation his white count was greater than 30,000. He had evidence of cellulitis with a large bulla on the right lateral malleolus. He had an ultrasound which did not show any fluid collection. Patient was started on vancomycin and cefepime. Blood cultures were negative. Patient stated that his right lower extremity has improved as far as the swelling and the pain and the redness. His white count has decreased but it still elevated. Infectious disease consultation has been requested to evaluate the patient. Review of Systems Constitutional: COMPLAINS OF: Fever, DENIES: Chills, Night Sweats Eyes: DENIES: Eye pain Ears, nose, mouth, throat: DENIES: Nasal discharge, Oral lesions, Throat pain, Ear Pain, Sinus Pain Respiratory: DENIES: Cough, Shortness of breath Cardiovascular: DENIES: Chest pain, Palpitations, Syncope, Dyspnea on Exertion Gastrointestinal: DENIES: Abdominal pain, Diarrhea, Nausea, Vomiting, Difficulty Swallowing Genitourinary: DENIES: Urgency, Hematuria, Dysuria Musculoskeletal: COMPLAINS OF: Joint pain, Joint Swelling, DENIES: Back pain, Neck pain Integumentary: COMPLAINS OF: Rash, DENIES: Pruritus Immunologic/allergic: DENIES: Eczema Psychiatric: DENIES: Confusion, Hallucinations Past Family Social History Allergies: Coded Allergies: No Known Allergies (Verified , 10/10/16) Past Medical History Hypertension Past Surgical History Knee 2x-LEFT, I and D rectal abscess Polyps removed Vasectomy Active Ordered Medications Tylenol Zachary Albuterol Cefepime Vasotec Lovenox Lactinex Prinivil MOM Lopressor Morphine Nicotine patch Zofran Vancomycin Family History Noncontributory to his current infectious disease problem Social History Lives with his Smokes a pack a day of cigarettes Drinks 4-6 beers per day Denies IV drug use, has smoked pot in the past Physical Exam Vital Signs Vital Signs Date Time Temp Pulse Resp B/P Pulse Ox O2 Delivery O2 Flow Rate FiO2 10/13/16 16:00 98.5 74 18 158/77 91 10/13/16 08:31 97.3 72 16 169/79 10/13/16 05:27 99.0 83 18 165/76 95 10/13/16 00:33 97.8 82 18 173/77 95 10/12/16 20:27 98.2 76 16 182/85 90 Physical Exam GENERAL: Patient is a well-nourished, well-developed CM, awake and alert, not in respiratory distress. SKIN: Warm and dry. No generalized rash, no ecchymoses and no evidence of embolic lesions. He has scattered areas of dry healing papules in both UE and LE HEAD: Atraumatic. Normocephalic. No temporal wasting, or tenderness. EYES: [place] conjunctiva. No petechia or hemorrhage. Pupils equal, round and reactive to light. Extraocular movements full and intact. No scleral icterus. No injection or drainage. EARS, NOSE AND THROAT: Nose without bleeding or purulent nasal discharge. No sinus tenderness. Mucous membranes pink and moist. No oral lesions noted. No exudate. No oral thrush. NECK: Trachea midline. Supple and not tender, no meningeal signs CARDIOVASCULAR: Regular rate and rhythm. No murmurs, rubs or gallops heard RESPIRATORY: Clear to auscultation. Breath sounds equal bilaterally. No rales , wheezing or rhonchi ABDOMEN: Soft, non-tender, nondistended. Bowel sounds present and normoactive. No guarding. No rebound. No organomegaly. EXTREMITIES: No clubbing, cyanosis, or edema in his LLE. No joint effusion, has good ROM. No calf tenderness. Well perfused and warm. RLE: has swelling and warmth of distal R leg and R foot; there is a dark reddish discoloration of the whole R foot with areas of purplish color, edema is better , since he is showing wrinkling on his R foot. There is some erythema also on distal R leg. There is are large bullous lesions on his R lateral malleolus some with clear fluid, ans some with more cloudy fluid. He has lymph nodes on his R groin, min tender. NO calf tenderness NEUROLOGICAL: Awake and alert. Cranial nerves grossly intact. Motor grossly within normal limits. PSYCHIATRIC: Normal affect, calm and cooperative. LINE: No evidence of infection Laboratory Laboratory Tests Test 10/12/16 20:50 Vancomycin Level Trough 7.6 Date/Time Procedure Status Source Growth 10/10/16 10:10 Aerobic Blood Culture - Preliminary Resulted Blood Peripheral NO GROWTH IN 3 DAYS 10/10/16 10:10 Anaerobic Blood Culture - Preliminary Resulted Blood Peripheral NO GROWTH IN 3 DAYS Result Diagram: 10/12/16 0646 10/12/16 0646 Imaging RADIOLOGY STUDIES/FILMS REVIEWED Last Impressions Lower Extremity Ultrasound 10/10/16 0000 Signed Impressions: Service Date/Time: Monday, October 10, 2016 16:59 - CONCLUSION: Swallow thick and dorsal soft tissues without focal drainable fluid collection. Dean Mercer MD Assessment and Plan Assessment and Plan IMPRESSION Sepsis on admission due to severe cellulitis RLE - ankle and foot - has been very slow to respond on Vanco and Cefepime - still with some fevers and leukocytosis Large bulla R lateral malleolus, as part of his cellulitis RECOMMENDATION I aspirated the fluid from bulla for C/S Podiatry evaluation Add Clinda and Levaquin Stop Vancomycin Continue cefepime Elevate RLE Will cover the R ankle bulla with dry dressing until seen by podiatry and they can order a more approprioate wound care Monitor progress Follow temps and WBC I will follow along with you Thank you for this consultation Discussed Condition With D/W RN Explained plan to the patient Kanika Mendoza MD Oct 13, 2016 17:39
[2016-10-13] MEDS: LEVOFLOXACIN 750 MG TAB PO SCH (18:54)
[2016-10-13] MEDS: CLINDAMYCIN INJ 600 MG in SODIUM CHLORIDE 0.9% INJ 100 ML IV SCH (18:55)
[2016-10-13 20:00] VITALS: BP 172/73; PULSE 79; RESP 18; TEMP 98.1; O2SAT 92
[2016-10-14] VITALS: BP 143/65; PULSE 64; RESP 18; TEMP 96.9; O2SAT 91
[2016-10-14] MEDS: CLINDAMYCIN INJ 600 MG in SODIUM CHLORIDE 0.9% INJ 100 ML IV SCH ×3 (03:42→21:01)
[2016-10-14] MEDS: CEFEPIME INJ 2,000 MG in SODIUM CHLORIDE 0.9% INJ 100 ML IV SCH ×2 (03:42→13:34)
[2016-10-14] MEDS ORDERED: PHARMACY ORDERED LAB-VANCO TROUGH ONE (03:45)
[2016-10-14 04:00] VITALS: BP 152/75; PULSE 75; RESP 18; TEMP 97.9; O2SAT 92
[2016-10-14] MEDS: ACETAMINOPHEN/HYDROcodone 325 MG/7.5 MG TAB PO PRN ×3 (05:53→21:00)
[2016-10-14 08:00] VITALS: BP 169/79; PULSE 71; RESP 18; TEMP 96.6; O2SAT 95
[2016-10-14] MEDS: REMOVE OLD PATCH T-DERMAL SCH (09:00)
[2016-10-14] MEDS: LACTOBACILLUS ACIDOPHILUS TAB PO SCH ×2 (09:37→21:00)
[2016-10-14] MEDS: LEVOFLOXACIN 750 MG TAB PO SCH (09:37)
[2016-10-14] MEDS: NICOTINE 21 MG/24 HR PATCH T-DERMAL SCH (09:37)
[2016-10-14] MEDS: METOPROLOL TARTRATE 25 MG TAB PO SCH ×2 (09:38→21:00)
[2016-10-14] MEDS: LISINOPRIL 20 MG TAB PO SCH (09:38)
[2016-10-14] MEDS: SODIUM CHLORIDE 0.9% FLUSH 10 ML FLUSH IV FLUSH SCH ×2 (11:12→21:01)
[2016-10-14 11:19] LABS: HEMATOCRIT 28.2 % (39.0-51.0); MEAN CELL VOLUME 60.4 FL (80.0-100.0); MEAN CORPUSCULAR HEMOGLOBIN 18.5 PG (27.0-34.0); MEAN CORPUSCULAR HGB CONC 30.6 % (32.0-36.0); PLATELET COUNT 441 TH/MM3 (150-450); RED BLOOD COUNT 4.67 MIL/MM3 (4.50-5.90); REVIEW FLAG FINAL; WHITE BLOOD COUNT 13.4 TH/MM3 (4.0-11.0)
--- NOTE | 2016-10-14 11:33 | HHI.PR ---
Subjective Remarks Follow-up for right foot infection Patient stated that his foot is a lot better after the blister was popped. He was afebrile overnight. Patient has no other complaints. He stated he is very anxious to go home. Objective Vitals Vital Signs Date Time Temp Pulse Resp B/P Pulse Ox O2 Delivery O2 Flow Rate FiO2 10/14/16 08:00 96.6 71 18 169/79 95 10/14/16 04:00 97.9 75 18 152/75 92 10/14/16 00:00 96.9 64 18 143/65 91 10/13/16 20:00 98.1 79 18 172/73 92 10/13/16 16:00 98.5 74 18 158/77 91 I/O 10/13/16 10/13/16 10/13/16 10/14/16 10/14/16 10/14/16 07:00 15:00 23:00 07:00 15:00 23:00 Intake Total 720 ml 960 ml Output Total 900 ml 300 ml Balance -180 ml 660 ml Intake Oral 720 ml 960 ml Output Urine Total 900 ml 300 ml # Voids 4 # Bowel Movements 0 Result Diagram: 10/14/16 1052 10/12/16 0646 Objective Remarks GENERAL: NAD SKIN: Warm and dry.Right lower extremity with some fluid from the ruptured blister and erythema that has improved drastically. Ecchymosis of the right foot. Positive tenderness to palpation but that has improved. CARDIOVASCULAR: Regular rate and rhythm without murmurs, gallops, or rubs. RESPIRATORY: Breath sounds equal bilaterally. No accessory muscle use. GASTROINTESTINAL: Abdomen soft, non-tender, nondistended. Medications and IVs Current Medications Ketorolac Tromethamine (Toradol Inj) 30 mg ONCE ONCE IVP Last administered on 10/10/16 10:48; Start 10/10/16 at 10:15; Stop 10/10/16 at 10:16; Status DC Tetanus/ Diphtheria Toxoids 0.5 ml 0.5 ml ONCE ONCE IM Last administered on 10:56; Start 10/10/16 at 10:15; Stop 10/10/16 at 10:16; Status DC Vancomycin HCl 1000 mg/Sodium Chloride 250 ml @ 250 mls/hr ONCE ONCE IV Last administered on 10/10/16 10:47; Start 10/10/16 at 10:15; Stop 10/10/16 at 11:14 ; Status DC Sodium Chloride 1,000 ml @ 125 mls/hr Q8H IV Last administered on 10/10/16 12 :55; Start 10/10/16 at 13:00; Stop 10/10/16 at 13:06; Status DC Sodium Chloride (NS 1000 ml Inj) 1,000 ml @ 70 mls/hr [id number] IV Last administered on 10/10/16 13:44; Start 10/10/16 at 12:59; Stop 10/10/16 at 14:37 ; Status DC Sodium Chloride (NS Flush) 2 ml UNSCH PRN IV FLUSH FLUSH AFTER USING IV ACCESS ; Start 10/10/16 at 13:00 Sodium Chloride (NS Flush) 2 ml BID IV FLUSH Last administered on 10/14/16 11: 12; Start 10/10/16 at 21:00 Acetaminophen (Tylenol) 650 mg Q4H PRN PO TEMP > 100.4 Last administered on 23:15; Start 10/10/16 at 13:00 Ondansetron HCl (Zofran Inj) 4 mg Q6H PRN IVP NAUSEA OR VOMITING Last administered on 10/13/16 00:40; Start 10/10/16 at 13:00 Enoxaparin Sodium (Lovenox Inj) 30 mg Q24H SQ Last administered on 10/13/16 12 :16; Start 10/10/16 at 13:00 Acetaminophen (Tylenol) 650 mg Q6H PRN PO PAIN SCALE 1 TO 2; Start 10/10/16 at 13:00 Acetaminophen/ Hydrocodone Bitart ([place] 5-325 Mg) 1 tab Q4H PRN PO PAIN SCALE 3 TO 5 Last administered on 10/10/16 18:07; Start 10/10/16 at 13:00 Acetaminophen/ Hydrocodone Bitart ([place] 7.5-325 Mg) 1 tab Q4H PRN PO PAIN SCALE 6 TO 10 Last administered on 10/14/16 05:53; Start 10/10/16 at 13:00 Naloxone HCl (Narcan Inj) 0.4 mg UNSCH PRN IV SEE LABEL COMMENTS; Start at 13:00 Magnesium Hydroxide (Milk Of Magnesia Liq) 30 ml Q12H PRN PO MILD - MODERATE CONSTIPATION; Start 10/10/16 at 13:00 Albuterol/ Ipratropium (Duoneb Neb) 1 ampule Q2HR NEB PRN NEB SOB/WHEEZING; Start 10/10/16 at 13:00 Enalaprilat (Vasotec Inj) 1.25 mg Q6H PRN IV PUSH SBP>160, DBP>90 Last administered on 10/13/16 00:40; Start 10/10/16 at 13:00 Lisinopril (Prinivil) 20 mg DAILY PO Last administered on 10/14/16 09:38; Start 10/11/16 at 09:00 Nicotine (Habitrol 21 Mg Patch.24 Hr) 1 patch DAILY T-DERMAL Last administered on 10/14/16 09:37; Start 10/10/16 at 14:45 Miscellaneous Information 1 DAILY T-DERMAL Last administered on 10/13/16 08:24 ; Start 10/10/16 at 14:45 Morphine Sulfate 2 mg 2 mg Q6H PRN IV PUSH BREAKTHROUGH PAIN; Start 10/10/16 at 14:45 Cefepime HCl/ Sodium Chloride (Maxipime Inj/NS Inj) 100 ml @ 200 mls/hr Q12H IV Last administered on 10/14/16 03:42; Start 10/10/16 at 15:00 Lactobacillus Acidophilus 1 tab 1 tab Q12HR PO Last administered on 10/14/16 09:37; Start 10/10/16 at 21:00 Pharmacy Profile Note 0 ml @ 0 mls/hr UNSCH OTHER ; Start 10/11/16 at 07:45; Stop 10/13/16 at 17:40; Status DC Vancomycin HCl/ Sodium Chloride (Vancomycin Inj/ NS 250 ml Inj) 262.5 ml @ 262.5 mls/ hr Q12H IV Last administered on 10/12/16 19:53; Start 10/11/16 at 09:00; Stop 10/12/16 at 22:25; Status DC Miscellaneous Information SPECIFIC LAB TO BE ... ONCE ONCE .XX Last administered on 10/12/16 19:52; Start 10/12/16 at 20:45; Stop 10/12/16 at 20:46 ; Status DC Potassium Chloride (KCl) 60 meq ONCE ONCE PO Last administered on 10/11/16 16 :04; Start 10/11/16 at 14:00; Stop 10/11/16 at 14:01; Status DC Metoprolol Tartrate (Lopressor) 25 mg Q12HR PO Last administered on 10/14/16 09:38; Start 10/12/16 at 13:00 Furosemide 20 mg 20 mg ONCE ONCE IV PUSH Last administered on 10/12/16 14:45 ; Start 10/12/16 at 14:00; Stop 10/12/16 at 14:01; Status DC Vancomycin HCl/ Sodium Chloride (Vancomycin Inj/ NS 250 ml Inj) 262.5 ml @ 262.5 mls/ hr Q8H IV Last administered on 10/13/16 12:16; Start 10/13/16 at 04 :00; Stop 10/13/16 at 17:40; Status DC Miscellaneous Information SPECIFIC LAB TO BE MARVA... ONCE ONCE .XX ; Start 10/14 at 03:45; Stop 10/14/16 at 03:46; Status DC Sodium Biphosphate/ Sodium Phosphate (Fleets Enema (Adult)) 133 ml ONCE ONCE RECTAL ; Start 10/13/16 at 11:15; Stop 10/13/16 at 12:34; Status DC Bisacodyl (Dulcolax Supp) 10 mg ONCE ONCE RECTAL Last administered on 14:52; Start 10/13/16 at 12:45; Stop 10/13/16 at 12:46; Status DC Levofloxacin 750 mg 750 mg DAILY PO Last administered on 10/14/16 09:37; Start 10/13/16 at 17:30 Clindamycin Phosphate/Sodium Chloride (Cleocin Inj/NS Inj) 104 ml @ 208 mls/hr Q8H IV Last administered on 10/14/16 11:12; Start 10/13/16 at 18:00 A/P Problem List: (1) Cellulitis of right lower extremity ICD Code: L03.115 Status: Acute (2) Failure of outpatient treatment ICD Code: Z78.9 Status: Acute (3) Benign hypertension ICD Code: I10 Status: Acute (4) Tobacco abuse ICD Code: Z72.0 Status: Acute (5) Tobacco abuse counseling ICD Code: Z71.6 Status: Acute (6) Normocytic normochromic anemia ICD Code: D64.9 Status: Acute Assessment and Plan 66-year-old man with Cellulitis right lower extremity Failed outpatient therapy Patient was initially on vancomycin and cefepime IV. Infectious disease discontinue vancomycin and added clindamycin and Levaquin. Right lower extremity ultrasound with finding of Swallow thick and dorsal soft tissues without focal drainable fluid collection. Parenteral pain medication when necessary Leukocytosis improved drastically with the change in antibiotics regimen. Appreciate infectious disease recommendation. Continue with current antibiotic regimen pending cultures. Tobacco abuse Tobacco counseling provided Continue nicotine patch Normochromic normocytic anemia of chronic disease Monitor H&H Stable. Benign hypertension-labile BP on Lopressor 25 mg every 12H and continue lisinopril Uncontrolled. We'll add amlodipine. Hypokalemia Resolved post treatment DVT prophylaxis: Lovenox Discharge Planning Patient requires IV antibiotics so will require continual hospitalization. Evelia Mccord MD Oct 14, 2016 11:33
[2016-10-14 11:53] LABS: BICARBONATE 27.1 MEQ/L (21.0-32.0)
[2016-10-14 12:00] VITALS: BP 155/72; PULSE 68; RESP 18; TEMP 97.6; O2SAT 93
[2016-10-14] MEDS: amLODIPine BESYLATE 5 MG TAB PO SCH (13:33)
[2016-10-14] MEDS: ENOXAPARIN SODIUM 30 MG/0.3 ML SYRINGE SQ SCH (13:34)
--- NOTE | 2016-10-14 15:33 | HHI.IDPN ---
Subjective Subjective Remarks Notes reviewed Temps Feels better C/S fluid negative so far WBC down to 13 Antibiotics Clinda IV Levaquin po Lines PIV Past Medical History Hypertension Past Surgical History Knee 2x-LEFT, I and D rectal abscess Polyps removed Vasectomy Allergies: Coded Allergies: No Known Allergies (Verified , 10/10/16) Objective . Vital Signs Date Time Temp Pulse Resp B/P Pulse Ox O2 Delivery O2 Flow Rate FiO2 10/14/16 12:00 97.6 68 18 155/72 93 10/14/16 08:00 96.6 71 18 169/79 95 10/14/16 04:00 97.9 75 18 152/75 92 10/14/16 00:00 96.9 64 18 143/65 91 10/13/16 20:00 98.1 79 18 172/73 92 10/13/16 16:00 98.5 74 18 158/77 91 10/13/16 10/13/16 10/14/16 15:00 23:00 07:00 Intake Total 960 ml Output Total 300 ml Balance 660 ml Intake Oral 960 ml Output Urine Total 300 ml # Voids 4 . Laboratory Tests Test 10/14/16 10:52 White Blood Count 13.4 TH/MM3 Red Blood Count 4.67 MIL/MM3 Hemoglobin 8.6 GM/DL Hematocrit 28.2 % Mean Corpuscular Volume 60.4 FL Mean Corpuscular Hemoglobin 18.5 PG Mean Corpuscular Hemoglobin 30.6 % Concent Red Cell Distribution Width 20.0 % Platelet Count 441 TH/MM3 Mean Platelet Volume 6.9 FL Laboratory Tests Test 10/14/16 10:52 Sodium Level 130 MEQ/L Potassium Level 3.0 MEQ/L Chloride Level 92 MEQ/L Carbon Dioxide Level 27.1 MEQ/L Anion Gap 11 MEQ/L Blood Urea Nitrogen 5 MG/DL Creatinine 0.40 MG/DL Estimat Glomerular Filtration 215 ML/MIN Rate Random Glucose 109 MG/DL Calcium Level 7.8 MG/DL Microbiology Date/Time Procedure Status Source Growth 10/13/16 17:10 Gram Stain - Final Resulted Fluid Other 10/13/16 17:10 Body Fluid Culture - Preliminary Resulted Fluid Other NO GROWTH IN 24 HOURS. Imaging Lower Extremity Ultrasound 10/10/16 0000 Signed Impressions: Service Date/Time: Monday, October 10, 2016 16:59 - CONCLUSION: Swallow thick and dorsal soft tissues without focal drainable fluid collection. Dean Mercer MD Physical Exam GENERAL: awake and alert, not in respiratory distress. SKIN: Warm and dry. No generalized rash, no ecchymoses and no evidence of embolic lesions. He has scattered areas of dry healing papules in both UE and LE HEAD: Atraumatic. Normocephalic. No temporal wasting, or tenderness. EYES: [place] conjunctiva. No petechia or hemorrhage. Pupils equal, round and reactive to light. Extraocular movements full and intact. No scleral icterus. No injection or drainage. EARS, NOSE AND THROAT: Nose without bleeding or purulent nasal discharge. No sinus tenderness. Mucous membranes pink and moist. No oral lesions noted. NECK: Trachea midline. Supple and not tender, no meningeal signs CARDIOVASCULAR: Regular rate and rhythm. No murmurs, rubs or gallops heard RESPIRATORY: Clear to auscultation. Breath sounds equal bilaterally. No rales , wheezing or rhonchi ABDOMEN: Soft, non-tender, nondistended. Bowel sounds present and normoactive. No guarding. No rebound. No organomegaly. EXTREMITIES: No clubbing, cyanosis, or edema in his LLE. No joint effusion, has good ROM. No calf tenderness. Well perfused and warm. RLE: swelling has markedly improved. There is ecchymoses on distal dorsum R foot. Bulla R lateral malleolus, same, less fluid. Delf[place] red color of his R foot. Redness distal leg is better NEUROLOGICAL: Awake and alert. Cranial nerves grossly intact. Motor grossly within normal limits. PSYCHIATRIC: Normal affect, calm and cooperative. LINE: No evidence of infection Assessment & Plan Remarks IMPRESSION Sepsis on admission due to severe cellulitis RLE - ankle and foot - has been very slow to respond on Vanco and Cefepime - still with some fevers and leukocytosis Fevers better Leukocytosis better Large bulla R lateral malleolus, as part of his cellulitis RECOMMENDATION Continue Clinda and Levaquin Stop cefepime Elevate RLE Follow C/S Await podiatry input on the large bulla Monitor progress Follow temps and WBC If continues to improve, will be able to D/C next day or 2 Explained plan to patient D/W Kanika Belcher MD Oct 14, 2016 15:33
[2016-10-14 16:00] VITALS: BP 180/83; PULSE 74; RESP 18; TEMP 96.8; O2SAT 96
--- NOTE | 2016-10-14 16:14 | PD.POD.CON ---
Patient Intake Chief Complaint Bulla and wound right lateral ankle Consult Requested by Dr. Mendoza Reason for Consult Evaluation and treatment of wound right lateral ankle Primary Care Physician Spenser Lacy MD History of Present Illness 66-year-old male who presented to [facility] with sepsis. Patient developed a blister on the right lateral ankle. He went to [facility] and received antibiotics and told to go to the hospital. He presented to [facility] and was admitted with leukocytosis. Irritable on the right lateral ankle which was aspirated by infectious disease. There is been no growth of the fluid at this time. Coded Allergies: No Known Allergies (Verified , 10/10/16) Preferred Language to Discuss: [place] Barriers to Learning: None Teaching Method: Discussion Vital Signs Date Time Temp Pulse Resp B/P Pulse Ox O2 Delivery O2 Flow Rate FiO2 10/14/16 12:00 97.6 68 18 155/72 93 10/14/16 08:00 96.6 71 18 169/79 95 10/14/16 04:00 97.9 75 18 152/75 92 10/14/16 00:00 96.9 64 18 143/65 91 10/13/16 20:00 98.1 79 18 172/73 92 Pain scale used: 0-10 numeric scale Pain score: 7 Medications Current Medications Ketorolac Tromethamine (Toradol Inj) 30 mg ONCE ONCE IVP Last administered on 10/10/16 10:48; Start 10/10/16 at 10:15; Stop 10/10/16 at 10:16; Status DC Tetanus/ Diphtheria Toxoids 0.5 ml 0.5 ml ONCE ONCE IM Last administered on 10:56; Start 10/10/16 at 10:15; Stop 10/10/16 at 10:16; Status DC Vancomycin HCl 1000 mg/Sodium Chloride 250 ml @ 250 mls/hr ONCE ONCE IV Last administered on 10/10/16 10:47; Start 10/10/16 at 10:15; Stop 10/10/16 at 11:14 ; Status DC Sodium Chloride 1,000 ml @ 125 mls/hr Q8H IV Last administered on 10/10/16 12 :55; Start 10/10/16 at 13:00; Stop 10/10/16 at 13:06; Status DC Sodium Chloride (NS 1000 ml Inj) 1,000 ml @ 70 mls/hr [id number] IV Last administered on 10/10/16 13:44; Start 10/10/16 at 12:59; Stop 10/10/16 at 14:37 ; Status DC Sodium Chloride (NS Flush) 2 ml UNSCH PRN IV FLUSH FLUSH AFTER USING IV ACCESS ; Start 10/10/16 at 13:00 Sodium Chloride (NS Flush) 2 ml BID IV FLUSH Last administered on 10/14/16 11: 12; Start 10/10/16 at 21:00 Acetaminophen (Tylenol) 650 mg Q4H PRN PO TEMP > 100.4 Last administered on 23:15; Start 10/10/16 at 13:00 Ondansetron HCl (Zofran Inj) 4 mg Q6H PRN IVP NAUSEA OR VOMITING Last administered on 10/13/16 00:40; Start 10/10/16 at 13:00 Enoxaparin Sodium (Lovenox Inj) 30 mg Q24H SQ Last administered on 10/14/16 13 :34; Start 10/10/16 at 13:00 Acetaminophen (Tylenol) 650 mg Q6H PRN PO PAIN SCALE 1 TO 2; Start 10/10/16 at 13:00 Acetaminophen/ Hydrocodone Bitart ([place] 5-325 Mg) 1 tab Q4H PRN PO PAIN SCALE 3 TO 5 Last administered on 10/10/16 18:07; Start 10/10/16 at 13:00 Acetaminophen/ Hydrocodone Bitart ([place] 7.5-325 Mg) 1 tab Q4H PRN PO PAIN SCALE 6 TO 10 Last administered on 10/14/16 14:53; Start 10/10/16 at 13:00 Naloxone HCl (Narcan Inj) 0.4 mg UNSCH PRN IV SEE LABEL COMMENTS; Start at 13:00 Magnesium Hydroxide (Milk Of Magnesia Liq) 30 ml Q12H PRN PO MILD - MODERATE CONSTIPATION; Start 10/10/16 at 13:00 Albuterol/ Ipratropium (Duoneb Neb) 1 ampule Q2HR NEB PRN NEB SOB/WHEEZING; Start 10/10/16 at 13:00 Enalaprilat (Vasotec Inj) 1.25 mg Q6H PRN IV PUSH SBP>160, DBP>90 Last administered on 10/13/16 00:40; Start 10/10/16 at 13:00 Lisinopril (Prinivil) 20 mg DAILY PO Last administered on 10/14/16 09:38; Start 10/11/16 at 09:00 Nicotine (Habitrol 21 Mg Patch.24 Hr) 1 patch DAILY T-DERMAL Last administered on 10/14/16 09:37; Start 10/10/16 at 14:45 Miscellaneous Information 1 DAILY T-DERMAL Last administered on 10/13/16 08:24 ; Start 10/10/16 at 14:45 Morphine Sulfate 2 mg 2 mg Q6H PRN IV PUSH BREAKTHROUGH PAIN; Start 10/10/16 at 14:45 Cefepime HCl/ Sodium Chloride (Maxipime Inj/NS Inj) 100 ml @ 200 mls/hr Q12H IV Last administered on 10/14/16 13:34; Start 10/10/16 at 15:00; Stop at 15:32; Status DC Lactobacillus Acidophilus 1 tab 1 tab Q12HR PO Last administered on 10/14/16 09:37; Start 10/10/16 at 21:00 Pharmacy Profile Note 0 ml @ 0 mls/hr UNSCH OTHER ; Start 10/11/16 at 07:45; Stop 10/13/16 at 17:40; Status DC Vancomycin HCl/ Sodium Chloride (Vancomycin Inj/ NS 250 ml Inj) 262.5 ml @ 262.5 mls/ hr Q12H IV Last administered on 10/12/16 19:53; Start 10/11/16 at 09:00; Stop 10/12/16 at 22:25; Status DC Miscellaneous Information SPECIFIC LAB TO BE MARVA... ONCE ONCE .XX Last administered on 10/12/16 19:52; Start 10/12/16 at 20:45; Stop 10/12/16 at 20:46 ; Status DC Potassium Chloride (KCl) 60 meq ONCE ONCE PO Last administered on 10/11/16 16 :04; Start 10/11/16 at 14:00; Stop 10/11/16 at 14:01; Status DC Metoprolol Tartrate (Lopressor) 25 mg Q12HR PO Last administered on 10/14/16 09:38; Start 10/12/16 at 13:00 Furosemide 20 mg 20 mg ONCE ONCE IV PUSH Last administered on 10/12/16 14:45 ; Start 10/12/16 at 14:00; Stop 10/12/16 at 14:01; Status DC Vancomycin HCl/ Sodium Chloride (Vancomycin Inj/ NS 250 ml Inj) 262.5 ml @ 262.5 mls/ hr Q8H IV Last administered on 10/13/16 12:16; Start 10/13/16 at 04 :00; Stop 10/13/16 at 17:40; Status DC Miscellaneous Information SPECIFIC LAB TO BE MARVA... ONCE ONCE .XX ; Start 10/14 at 03:45; Stop 10/14/16 at 03:46; Status DC Sodium Biphosphate/ Sodium Phosphate (Fleets Enema (Adult)) 133 ml ONCE ONCE RECTAL ; Start 10/13/16 at 11:15; Stop 10/13/16 at 12:34; Status DC Bisacodyl (Dulcolax Supp) 10 mg ONCE ONCE RECTAL Last administered on 14:52; Start 10/13/16 at 12:45; Stop 10/13/16 at 12:46; Status DC Levofloxacin 750 mg 750 mg DAILY PO Last administered on 10/14/16 09:37; Start 10/13/16 at 17:30 Clindamycin Phosphate/Sodium Chloride (Cleocin Inj/NS Inj) 104 ml @ 208 mls/hr Q8H IV Last administered on 10/14/16 11:12; Start 10/13/16 at 18:00 Amlodipine Besylate (Norvasc) 5 mg DAILY PO Last administered on 10/14/16 13: 33; Start 10/14/16 at 11:45 Past, Family & Social History Past Medical History PFSH Reviewed: Yes Cardiovascular: REPORTS HX OF: Hypertension Review of Systems Constitutional: COMPLAINS OF: Good general health, Pain Integumentary: COMPLAINS OF: Rash Exam-Podiatry Constitutional General appearance: comfortable Nutritional status: normal Orientation: alert and oriented x3 Dermatological Exam Skin Temp - Right: Within Normal Limits Skin Texture - Right: Within Normal Limits Skin Elasticity - Right: Within Normal Limits Skin Tugor - Right: Within Normal Limits Hair Growth - Right: Within Normal Limits Pigmentation - Right: Abnormal Skin Temp - Left: Within Normal Limits Skin Texture - Left: Within Normal Limits Skin Elasticity - Left: Within Normal Limits Skin Tugor - Left: Within Normal Limits Hair Growth - Left: Within Normal Limits Pigmentation - Left: Within Normal Limits Ulcers: Location/Measurements Open wound of the right lateral ankle measuring approximately 6 cm x 4 cm. There is some drainage coming from the wound. His foot is ecchymotic. Vascular/Lymphatic Exam R Dorsails Pedis: Palpable L Dorsails Pedis: Palpable R Posterior Tibial: Palpable L Posterior Tibial: Palpable Neurologic Exam Details No neurological deficit Muscle Strength Dorsiflexion (Right): Normal Plantarflexion (Right): Normal Inversion (Right): Normal Eversion (Right): Normal Digital (Right): Normal Dorsiflexion (Left): Normal Plantarflexion (Left): Normal Inversion (Left): Normal Eversion (Left): Normal Digital (Left): Normal Foot Range of Motion Dorsiflexion (Right): Normal Plantarflexion (Right): Normal Inversion (Right): Normal Eversion (Right): Normal Digital (Right): Normal Dorsiflexion (Left): Normal Plantarflexion (Left): Normal Inversion (Left): Normal Eversion (Left): Normal Digital (Left): Normal Lab and Radiology Results Laboratory Laboratory Tests Test 10/14/16 10:52 White Blood Count 13.4 TH/MM3 Red Blood Count 4.67 MIL/MM3 Hemoglobin 8.6 GM/DL Hematocrit 28.2 % Mean Corpuscular Volume 60.4 FL Mean Corpuscular Hemoglobin 18.5 PG Mean Corpuscular Hemoglobin 30.6 % Concent Red Cell Distribution Width 20.0 % Platelet Count 441 TH/MM3 Mean Platelet Volume 6.9 FL Laboratory Tests Test 10/14/16 10:52 Sodium Level 130 MEQ/L Potassium Level 3.0 MEQ/L Chloride Level 92 MEQ/L Carbon Dioxide Level 27.1 MEQ/L Anion Gap 11 MEQ/L Blood Urea Nitrogen 5 MG/DL Creatinine 0.40 MG/DL Estimat Glomerular Filtration 215 ML/MIN Rate Random Glucose 109 MG/DL Calcium Level 7.8 MG/DL Microbiology Date/Time Procedure Status Source Growth 10/13/16 17:10 Gram Stain - Final Resulted Fluid Other 10/13/16 17:10 Body Fluid Culture - Preliminary Resulted Fluid Other NO GROWTH IN 24 HOURS. Radiology Last Impressions Lower Extremity Ultrasound 10/10/16 0000 Signed Impressions: Service Date/Time: Monday, October 10, 2016 16:59 - CONCLUSION: Swallow thick and dorsal soft tissues without focal drainable fluid collection. Dean Mercer MD Assessment/Plan Problem List: (1) Failure of outpatient treatment Status: Acute (2) Acute blistering eruption of skin Status: Acute (3) Insect bite (nonvenomous), right ankle, initial encounter Status: Acute Plan: Possible insect bite with ecchymotic changes and open wound. Additional Plans & Procedures PLAN: Culture and sensitivity of the wound bed. Maxorb extra AG dressings. Continue to follow. No baths or showers. Ben Ibrahim DPM Oct 14, 2016 16:14
[2016-10-14] MEDS: ENALAPRILAT 1.25 MG/ML VIAL IV PUSH PRN (17:02)
[2016-10-14 20:00] VITALS: BP 161/76; PULSE 74; RESP 16; TEMP 97.8; O2SAT 93
[2016-10-15] VITALS (7 sets, daily range): BP systolic 169–193; BP diastolic 77–98; PULSE 66–85; RESP 16–18; TEMP 96.5–98.3; O2SAT 94–96
[2016-10-15] MEDS: CLINDAMYCIN INJ 600 MG in SODIUM CHLORIDE 0.9% INJ 100 ML IV SCH ×3 (02:51→17:14)
[2016-10-15] MEDS: ENALAPRILAT 1.25 MG/ML VIAL IV PUSH PRN ×3 (04:44→18:49)
[2016-10-15] MEDS: METOPROLOL TARTRATE 25 MG TAB PO SCH ×2 (09:00→19:43)
[2016-10-15] MEDS: LEVOFLOXACIN 750 MG TAB PO SCH (09:00)
[2016-10-15] MEDS: LISINOPRIL 20 MG TAB PO SCH (09:00)
[2016-10-15] MEDS: amLODIPine BESYLATE 5 MG TAB PO SCH (09:00)
[2016-10-15] MEDS: LACTOBACILLUS ACIDOPHILUS TAB PO SCH ×2 (09:00→19:43)
[2016-10-15] MEDS: REMOVE OLD PATCH T-DERMAL SCH (09:00)
[2016-10-15] MEDS: NICOTINE 21 MG/24 HR PATCH T-DERMAL SCH (09:00)
[2016-10-15] MEDS: SODIUM CHLORIDE 0.9% FLUSH 10 ML FLUSH IV FLUSH SCH ×2 (09:05→19:43)
[2016-10-15 09:28] LABS: HEMATOCRIT 29.6 % (39.0-51.0); MEAN CELL VOLUME 60.5 FL (80.0-100.0); MEAN CORPUSCULAR HEMOGLOBIN 18.5 PG (27.0-34.0); MEAN CORPUSCULAR HGB CONC 30.7 % (32.0-36.0); PLATELET COUNT 502 TH/MM3 (150-450); RED BLOOD COUNT 4.89 MIL/MM3 (4.50-5.90); RED CELL DISTRIBUTION WIDTH 20.1 % (11.6-17.2); REVIEW FLAG FINAL; WHITE BLOOD COUNT 13.1 TH/MM3 (4.0-11.0)
[2016-10-15 09:52] LABS: POTASSIUM 3.2 MEQ/L (3.5-5.1)
--- NOTE | 2016-10-15 12:23 | HHI.PR ---
Subjective Remarks Follow-up for right foot infection. Patient stated that they just wrapped his wound. He feels like the wound is improving. He has no other complaints. Patient remains afebrile. Objective Vitals Vital Signs Date Time Temp Pulse Resp B/P Pulse Ox O2 Delivery O2 Flow Rate FiO2 10/15/16 10:00 180/86 10/15/16 08:00 97.8 76 18 180/89 94 10/15/16 04:00 97.9 74 16 187/88 94 10/15/16 01:02 97.1 66 16 169/78 94 10/14/16 22:20 16 10/14/16 20:00 97.8 74 16 161/76 93 10/14/16 16:00 96.8 74 18 180/83 96 I/O 10/14/16 10/14/16 10/14/16 10/15/16 10/15/16 10/15/16 07:00 15:00 23:00 07:00 15:00 23:00 Intake Total 960 ml 240 ml 480 ml Output Total 1000 ml 800 ml 825 ml Balance -40 ml -560 ml -345 ml Intake Oral 960 ml 240 ml 480 ml Output Urine Total 1000 ml 800 ml 825 ml Result Diagram: 10/15/16 0849 10/15/16 0849 Objective Remarks GENERAL: NAD SKIN: Warm and dry.Right lower extremity with some fluid from the ruptured blister and erythema that has improved drastically. Ecchymosis of the right foot. Positive tenderness to palpation but that has improved. CARDIOVASCULAR: Regular rate and rhythm without murmurs, gallops, or rubs. RESPIRATORY: Breath sounds equal bilaterally. No accessory muscle use. GASTROINTESTINAL: Abdomen soft, non-tender, nondistended. Medications and IVs Current Medications Ketorolac Tromethamine (Toradol Inj) 30 mg ONCE ONCE IVP Last administered on 10/10/16 10:48; Start 10/10/16 at 10:15; Stop 10/10/16 at 10:16; Status DC Tetanus/ Diphtheria Toxoids 0.5 ml 0.5 ml ONCE ONCE IM Last administered on 10:56; Start 10/10/16 at 10:15; Stop 10/10/16 at 10:16; Status DC Vancomycin HCl 1000 mg/Sodium Chloride 250 ml @ 250 mls/hr ONCE ONCE IV Last administered on 10/10/16 10:47; Start 10/10/16 at 10:15; Stop 10/10/16 at 11:14 ; Status DC Sodium Chloride 1,000 ml @ 125 mls/hr Q8H IV Last administered on 10/10/16 12 :55; Start 10/10/16 at 13:00; Stop 10/10/16 at 13:06; Status DC Sodium Chloride (NS 1000 ml Inj) 1,000 ml @ 70 mls/hr [id number] IV Last administered on 10/10/16 13:44; Start 10/10/16 at 12:59; Stop 10/10/16 at 14:37 ; Status DC Sodium Chloride (NS Flush) 2 ml UNSCH PRN IV FLUSH FLUSH AFTER USING IV ACCESS ; Start 10/10/16 at 13:00 Sodium Chloride (NS Flush) 2 ml BID IV FLUSH Last administered on 10/15/16 09: 05; Start 10/10/16 at 21:00 Acetaminophen (Tylenol) 650 mg Q4H PRN PO TEMP > 100.4 Last administered on 23:15; Start 10/10/16 at 13:00 Ondansetron HCl (Zofran Inj) 4 mg Q6H PRN IVP NAUSEA OR VOMITING Last administered on 10/13/16 00:40; Start 10/10/16 at 13:00 Enoxaparin Sodium (Lovenox Inj) 30 mg Q24H SQ Last administered on 10/14/16 13 :34; Start 10/10/16 at 13:00 Acetaminophen (Tylenol) 650 mg Q6H PRN PO PAIN SCALE 1 TO 2; Start 10/10/16 at 13:00 Acetaminophen/ Hydrocodone Bitart ([place] 5-325 Mg) 1 tab Q4H PRN PO PAIN SCALE 3 TO 5 Last administered on 10/10/16 18:07; Start 10/10/16 at 13:00 Acetaminophen/ Hydrocodone Bitart ([place] 7.5-325 Mg) 1 tab Q4H PRN PO PAIN SCALE 6 TO 10 Last administered on 10/14/16 21:00; Start 10/10/16 at 13:00 Naloxone HCl (Narcan Inj) 0.4 mg UNSCH PRN IV SEE LABEL COMMENTS; Start at 13:00 Magnesium Hydroxide (Milk Of [place] Liq) 30 ml Q12H PRN PO MILD - MODERATE CONSTIPATION; Start 10/10/16 at 13:00 Albuterol/ Ipratropium (Duoneb Neb) 1 ampule Q2HR NEB PRN NEB SOB/WHEEZING; Start 10/10/16 at 13:00 Enalaprilat (Vasotec Inj) 1.25 mg Q6H PRN IV PUSH SBP>160, DBP>90 Last administered on 10/15/16 10:18; Start 10/10/16 at 13:00 Lisinopril (Prinivil) 20 mg DAILY PO Last administered on 10/15/16 09:00; Start 10/11/16 at 09:00 Nicotine (Habitrol 21 Mg Patch.24 Hr) 1 patch DAILY T-DERMAL Last administered on 10/15/16 09:00; Start 10/10/16 at 14:45 Miscellaneous Information 1 DAILY T-DERMAL Last administered on 10/15/16 09:00 ; Start 10/10/16 at 14:45 Morphine Sulfate 2 mg 2 mg Q6H PRN IV PUSH BREAKTHROUGH PAIN Last administered on 10/14/16 17:04; Start 10/10/16 at 14:45 Cefepime HCl/ Sodium Chloride (Maxipime Inj/NS Inj) 100 ml @ 200 mls/hr Q12H IV Last administered on 10/14/16 13:34; Start 10/10/16 at 15:00; Stop at 15:32; Status DC Lactobacillus Acidophilus 1 tab 1 tab Q12HR PO Last administered on 10/15/16 09:00; Start 10/10/16 at 21:00 Pharmacy Profile Note 0 ml @ 0 mls/hr UNSCH OTHER ; Start 10/11/16 at 07:45; Stop 10/13/16 at 17:40; Status DC Vancomycin HCl/ Sodium Chloride (Vancomycin Inj/ NS 250 ml Inj) 262.5 ml @ 262.5 mls/ hr Q12H IV Last administered on 10/12/16 19:53; Start 10/11/16 at 09:00; Stop 10/12/16 at 22:25; Status DC Miscellaneous Information SPECIFIC LAB TO BE ... ONCE ONCE .XX Last administered on 10/12/16 19:52; Start 10/12/16 at 20:45; Stop 10/12/16 at 20:46 ; Status DC Potassium Chloride (KCl) 60 meq ONCE ONCE PO Last administered on 10/11/16 16 :04; Start 10/11/16 at 14:00; Stop 10/11/16 at 14:01; Status DC Metoprolol Tartrate (Lopressor) 25 mg Q12HR PO Last administered on 10/15/16 09:00; Start 10/12/16 at 13:00 Furosemide 20 mg 20 mg ONCE ONCE IV PUSH Last administered on 10/12/16 14:45 ; Start 10/12/16 at 14:00; Stop 10/12/16 at 14:01; Status DC Vancomycin HCl/ Sodium Chloride (Vancomycin Inj/ NS 250 ml Inj) 262.5 ml @ 262.5 mls/ hr Q8H IV Last administered on 10/13/16 12:16; Start 10/13/16 at 04 :00; Stop 10/13/16 at 17:40; Status DC Miscellaneous Information SPECIFIC LAB TO BE MARVA... ONCE ONCE .XX ; Start 10/14 at 03:45; Stop 10/14/16 at 03:46; Status DC Sodium Biphosphate/ Sodium Phosphate (Fleets Enema (Adult)) 133 ml ONCE ONCE RECTAL ; Start 10/13/16 at 11:15; Stop 10/13/16 at 12:34; Status DC Bisacodyl (Dulcolax Supp) 10 mg ONCE ONCE RECTAL Last administered on 14:52; Start 10/13/16 at 12:45; Stop 10/13/16 at 12:46; Status DC Levofloxacin 750 mg 750 mg DAILY PO Last administered on 10/15/16 09:00; Start 10/13/16 at 17:30 Clindamycin Phosphate/Sodium Chloride (Cleocin Inj/NS Inj) 104 ml @ 208 mls/hr Q8H IV Last administered on 10/15/16 09:28; Start 10/13/16 at 18:00 Amlodipine Besylate (Norvasc) 5 mg DAILY PO Last administered on 10/15/16 09: 00; Start 10/14/16 at 11:45 A/P Problem List: (1) Cellulitis of right lower extremity ICD Code: L03.115 Status: Acute (2) Failure of outpatient treatment ICD Code: Z78.9 Status: Acute (3) Benign hypertension ICD Code: I10 Status: Acute (4) Tobacco abuse ICD Code: Z72.0 Status: Acute (5) Tobacco abuse counseling ICD Code: Z71.6 Status: Acute (6) Normocytic normochromic anemia ICD Code: D64.9 Status: Acute Assessment and Plan 66-year-old man with Cellulitis right lower extremity Failed outpatient therapy Patient was initially on vancomycin and cefepime IV. Infectious disease discontinue vancomycin and added clindamycin and Levaquin. Cefepime was also discontinued. Right lower extremity ultrasound with finding of Swallow thick and dorsal soft tissues without focal drainable fluid collection. Parenteral pain medication when necessary Leukocytosis improved drastically with the change in antibiotics regimen. Appreciate infectious disease recommendation. Continue with current antibiotic regimen pending cultures. Possible discharge tomorrow. Tobacco abuse Tobacco counseling provided Continue nicotine patch Normochromic normocytic anemia of chronic disease Monitor H&H Stable. Benign hypertension-labile BP on Lopressor 25 mg every 12H and continue lisinopril Uncontrolled. We'll add amlodipine. Hypokalemia Resolved post treatment DVT prophylaxis: Lovenox Discharge Planning Depending on clinical course possible discharge tomorrow if there is continual improvement and pending wound cultures. Evelia Mccord MD Oct 15, 2016 12:23
[2016-10-15] MEDS: ENOXAPARIN SODIUM 30 MG/0.3 ML SYRINGE SQ SCH (12:37)
--- NOTE | 2016-10-15 14:13 | HHI.IDPN ---
Subjective Subjective Remarks Notes reviewed Temps ok Feels better, but having a lot of pain when putting weight on it Unsteady due to R foot C/S fluid negative so far WBC down to 13 Antibiotics Clinda IV Levaquin po Lines PIV Past Medical History Hypertension Past Surgical History Knee 2x-LEFT, I and D rectal abscess Polyps removed Vasectomy Allergies: Coded Allergies: No Known Allergies (Verified , 10/10/16) Objective . Vital Signs Date Time Temp Pulse Resp B/P Pulse Ox O2 Delivery O2 Flow Rate FiO2 10/15/16 12:00 96.5 76 18 178/86 96 10/15/16 10:00 180/86 10/15/16 08:00 97.8 76 18 180/89 94 10/15/16 04:00 97.9 74 16 187/88 94 10/15/16 01:02 97.1 66 16 169/78 94 10/14/16 22:20 16 10/14/16 20:00 97.8 74 16 161/76 93 10/14/16 16:00 96.8 74 18 180/83 96 10/14/16 10/14/16 10/15/16 15:00 23:00 07:00 Intake Total 960 ml 240 ml 480 ml Output Total 1000 ml 800 ml 825 ml Balance -40 ml -560 ml -345 ml Intake Oral 960 ml 240 ml 480 ml Output Urine Total 1000 ml 800 ml 825 ml . Laboratory Tests Test 10/14/16 10/15/16 10:52 08:49 White Blood Count 13.4 TH/MM3 13.1 TH/MM3 Red Blood Count 4.67 MIL/MM3 4.89 MIL/MM3 Hemoglobin 8.6 GM/DL 9.1 GM/DL Hematocrit 28.2 % 29.6 % Mean Corpuscular Volume 60.4 FL 60.5 FL Mean Corpuscular Hemoglobin 18.5 PG 18.5 PG Mean Corpuscular Hemoglobin 30.6 % 30.7 % Concent Red Cell Distribution Width 20.0 % 20.1 % Platelet Count 441 TH/MM3 502 TH/MM3 Mean Platelet Volume 6.9 FL 7.4 FL Laboratory Tests Test 10/14/16 10/15/16 10:52 08:49 Sodium Level 130 MEQ/L 129 MEQ/L Potassium Level 3.0 MEQ/L 3.2 MEQ/L Chloride Level 92 MEQ/L 91 MEQ/L Carbon Dioxide Level 27.1 MEQ/L 24.0 MEQ/L Anion Gap 11 MEQ/L 14 MEQ/L Blood Urea Nitrogen 5 MG/DL 4 MG/DL Creatinine 0.40 MG/DL 0.42 MG/DL Estimat Glomerular Filtration 215 ML/MIN 203 ML/MIN Rate Random Glucose 109 MG/DL 85 MG/DL Calcium Level 7.8 MG/DL 8.7 MG/DL Microbiology Date/Time Procedure Status Source Growth 10/13/16 17:10 Gram Stain - Final Resulted Fluid Other 10/13/16 17:10 Body Fluid Culture - Preliminary Resulted Fluid Other NO GROWTH IN 48 HOURS. 10/15/16 09:15 Gram Stain Received Wound Ankle Pending 10/15/16 09:15 Wound Culture Received Wound Ankle Pending Imaging Lower Extremity Ultrasound 10/10/16 0000 Signed Impressions: Service Date/Time: Monday, October 10, 2016 16:59 - CONCLUSION: Swallow thick and dorsal soft tissues without focal drainable fluid collection. Dean Mercer MD Physical Exam GENERAL: awake and alert, not in respiratory distress. SKIN: Warm and dry. He has scattered areas of dry healing papules in both UE and LE HEAD: Atraumatic. Normocephalic. No temporal wasting, or tenderness. EYES: [address] conjunctiva. No petechia or hemorrhage. Pupils equal, round and reactive to light. Extraocular movements full and intact. No scleral icterus. No injection or drainage. EARS, NOSE AND THROAT: Nose without bleeding or purulent nasal discharge. No sinus tenderness. Mucous membranes pink and moist. No oral lesions noted. NECK: Trachea midline. Supple and not tender, no meningeal signs CARDIOVASCULAR: Regular rate and rhythm. No murmurs, rubs or gallops heard RESPIRATORY: Clear to auscultation. Breath sounds equal bilaterally. No rales , wheezing or rhonchi ABDOMEN: Soft, non-tender, nondistended. Bowel sounds present and normoactive. No guarding. No rebound. No organomegaly. EXTREMITIES: No clubbing, cyanosis, or edema in his LLE. No joint effusion, has good ROM. No calf tenderness. Well perfused and warm. RLE: swelling has markedly improved. There is ecchymoses/purpura over entire dorsum of his R foot. Bulla R lateral malleolus, with less fluid. Redness distal leg is better NEUROLOGICAL: Awake and alert. Cranial nerves grossly intact. Motor grossly within normal limits. PSYCHIATRIC: Normal affect, calm and cooperative. LINE: No evidence of infection Assessment & Plan Remarks IMPRESSION Sepsis on admission due to severe cellulitis RLE - ankle and foot - has been very slow to respond on Vanco and Cefepime - still with some fevers and leukocytosis - has significant purupura on dorsum of his foot, platelets ok, ?due to lovenox; swelling has improved Fevers resolved Leukocytosis better Large bulla R lateral malleolus, as part of his cellulitis RECOMMENDATION Continue Clinda and Levaquin Elevate RLE Check cogs ?Stop lovenox or decrease dose Follow C/S Monitor progress Follow temps and WBC If continues to improve, change to Clinda 300 QID, continue Levaquin Give oral Abx until October 29 Increase more ambulation - patient very unsteady Explained plan to patient Kanika Mendoza MD Oct 15, 2016 14:13
[2016-10-15 16:31] LABS: INTERNATIONAL NORMALIZED RATIO 1.1 RATIO; PROTHROMBIN TIME - PATIENT 12.7 SEC (9.8-11.6)
[2016-10-16 01:02] VITALS: BP 158/76; PULSE 75; RESP 18; TEMP 98.5; O2SAT 95
[2016-10-16] MEDS: CLINDAMYCIN INJ 600 MG in SODIUM CHLORIDE 0.9% INJ 100 ML IV SCH ×2 (01:33→09:17)
[2016-10-16 04:00] VITALS: BP 179/81; PULSE 68; RESP 16; TEMP 98.9; O2SAT 94
[2016-10-16] MEDS: ENALAPRILAT 1.25 MG/ML VIAL IV PUSH PRN (04:06)
[2016-10-16 05:33] VITALS: BP 169/74; PULSE 81; RESP 18; O2SAT 95
[2016-10-16 08:00] VITALS: BP 163/79; PULSE 81; RESP 17; TEMP 97.1; O2SAT 96
[2016-10-16] MEDS: SODIUM CHLORIDE 0.9% FLUSH 10 ML FLUSH IV FLUSH SCH (09:00)
[2016-10-16] MEDS: NICOTINE 21 MG/24 HR PATCH T-DERMAL SCH (09:00)
[2016-10-16] MEDS: REMOVE OLD PATCH T-DERMAL SCH (09:00)
[2016-10-16] MEDS: METOPROLOL TARTRATE 25 MG TAB PO SCH (09:12)
[2016-10-16] MEDS: amLODIPine BESYLATE 5 MG TAB PO SCH (09:12)
[2016-10-16] MEDS: LEVOFLOXACIN 750 MG TAB PO SCH (09:12)
[2016-10-16] MEDS: LACTOBACILLUS ACIDOPHILUS TAB PO SCH (09:12)
[2016-10-16] MEDS: LISINOPRIL 20 MG TAB PO SCH (09:17)
[2016-10-16] MEDS: ACETAMINOPHEN/HYDROcodone 325 MG/7.5 MG TAB PO PRN (10:32)
[2016-10-16 11:26] LABS: HEMATOCRIT 29.9 % (39.0-51.0); MEAN CELL VOLUME 60.2 FL (80.0-100.0); MEAN CORPUSCULAR HEMOGLOBIN 19.1 PG (27.0-34.0); MEAN CORPUSCULAR HGB CONC 31.7 % (32.0-36.0); PLATELET COUNT 535 TH/MM3 (150-450); RED BLOOD COUNT 4.97 MIL/MM3 (4.50-5.90); RED CELL DISTRIBUTION WIDTH 20.1 % (11.6-17.2); REVIEW FLAG FINAL; WHITE BLOOD COUNT 13.7 TH/MM3 (4.0-11.0)
[2016-10-16] MEDS ORDERED: HYDR-3516 PO (11:45)
[2016-10-16] MEDS ORDERED: GETGO ROLLING W1 MI1 (11:45)
[2016-10-16] MEDS ORDERED: CLIN1CAP6 PO ×2 (11:45→12:00)
[2016-10-16] MEDS ORDERED: AMLO5 PO (11:45)
[2016-10-16] MEDS ORDERED: LACT PO (11:45)
[2016-10-16] MEDS ORDERED: LEVA750T9 PO (11:45)
--- NOTE | 2016-10-16 11:46 | HHI.FF ---
Face to Face Verification Diagnosis: (1) Gait instability (2) Acute blistering eruption of skin (3) Insect bite (nonvenomous), right ankle, initial encounter (4) Benign hypertension (5) Cellulitis of right lower extremity (6) Failure of outpatient treatment Physical Therapy Order: Evaluate and Treat, Improve ambulation, Strength and gait training Home Health Nursing Order: Medical education Signs/symptoms of disease process Medication education-adverse effect Wound care and dressing changes I have seen patient Jayme Reece on 10/16/16. My clinical findings support the need for the requested home health care services because: Ltd mobility - disease progression Deconditioned w/ increased weakness I certify that my clinical findings support that this patient is homebound because: Unsteady gait/balance Evelia Mccord MD Oct 16, 2016 11:46
--- NOTE | 2016-10-16 11:46 | HHI.DCPOC ---
Discharge Care Plan Diagnosis: (1) Gait instability (2) Cellulitis of right lower extremity (3) Failure of outpatient treatment (4) Benign hypertension (5) Acute blistering eruption of skin (6) Insect bite (nonvenomous), right ankle, initial encounter Goals to Promote Your Health * To prevent worsening of your condition and complications * To maintain your health at the optimal level Directions to Meet Your Goals Take your medications as prescribed Follow your dietary instruction Follow activity as directed Keep your appointments as scheduled Take your immunizations and boosters as scheduled If your symptoms worsen call your PCP, if no PCP go to Urgent Care Center or Emergency Room Smoking is Dangerous to Your Health. Avoid second hand smoke Call the 24-hour hour crisis hotline for domestic abuse at Evelia Mccord MD Oct 16, 2016 11:46
--- NOTE | 2016-10-16 11:46 | HHI.DS ---
Discharge Summary Admission Date Oct 10, 2016 at 12:47 Discharge Date: Oct 16, 2016 Admitting Diagnosis right lower extremity cellulitis. Leukocytosis. Hyponatremia. (1) Cellulitis of right lower extremity ICD Code: L03.115 Diagnosis: Principal (2) Failure of outpatient treatment ICD Code: Z78.9 Diagnosis: Principal (3) Benign hypertension ICD Code: I10 Diagnosis: Secondary (4) Tobacco abuse ICD Code: Z72.0 Diagnosis: Secondary (5) Tobacco abuse counseling ICD Code: Z71.6 Diagnosis: Secondary (6) Normocytic normochromic anemia ICD Code: D64.9 Diagnosis: Secondary Procedures see hospital course Brief History - From Admission 66-year-old male with a history of hypertension presented to the ED for evaluation of right lower extremity pain and swelling along with blister 4 days , was seen yesterday at an outside hospital and was treated with 3 bags of antibiotics and advised to seek medical attention to [facility] if no improvement. He reported worsening right lower extremity as well as redness and blister formations. The pain is throbbing and causing inability to put weight on his right lower extremity. Denies any febrile episode. He has no chest pain or shortness of breath. He also denies any trauma or insect bites. CBC/BMP: 10/16/16 1117 10/15/16 0849 Significant Findings Laboratory Tests Test 10/14/16 10/15/16 10/15/16 10/16/16 10:52 08:49 16:06 11:17 White Blood Count 13.4 TH/MM3 13.1 TH/MM3 13.7 TH/MM3 (4.0-11.0) (4.0-11.0) (4.0-11.0) Hemoglobin 8.6 GM/DL 9.1 GM/DL 9.5 GM/DL (13.0-17.0) (13.0-17.0) (13.0-17.0) Hematocrit 28.2 % 29.6 % 29.9 % (39.0-51.0) (39.0-51.0) (39.0-51.0) Mean Corpuscular Volume 60.4 FL 60.5 FL 60.2 FL (80.0-100.0) (80.0-100.0) (80.0-100.0) Mean Corpuscular Hemoglobin 18.5 PG 18.5 PG 19.1 PG (27.0-34.0) (27.0-34.0) (27.0-34.0) Mean Corpuscular Hemoglobin 30.6 % 30.7 % 31.7 % Concent (32.0-36.0) (32.0-36.0) (32.0-36.0) Red Cell Distribution Width 20.0 % 20.1 % 20.1 % (11.6-17.2) (11.6-17.2) (11.6-17.2) Mean Platelet Volume 6.9 FL 6.8 FL (7.0-11.0) (7.0-11.0) Sodium Level 130 MEQ/L 129 MEQ/L (136-145) (136-145) Potassium Level 3.0 MEQ/L 3.2 MEQ/L (3.5-5.1) (3.5-5.1) Chloride Level 92 MEQ/L 91 MEQ/L (98-107) (98-107) Blood Urea Nitrogen 5 MG/DL (7-18) 4 MG/DL (7-18) Creatinine 0.40 MG/DL 0.42 MG/DL (0.60-1.30) (0.60-1.30) Random Glucose 109 MG/DL (74-106) Calcium Level 7.8 MG/DL (8.5-10.1) Platelet Count 502 TH/MM3 535 TH/MM3 (150-450) (150-450) Prothrombin Time 12.7 SEC (9.8-11.6) Activated Partial 32.0 SEC Thromboplast Time (24.3-30.1) Imaging Last Impressions Lower Extremity Ultrasound 10/10/16 0000 Signed Impressions: Service Date/Time: Monday, October 10, 2016 16:59 - CONCLUSION: Swallow thick and dorsal soft tissues without focal drainable fluid collection. Dean Mercer MD PE at Discharge GENERAL: NAD SKIN: Warm and dry.Right lower extremity with some fluid from the ruptured blister and mild erythema that has improved drastically. Ecchymosis of the right foot that improved drastically.. no TTP. CARDIOVASCULAR: Regular rate and rhythm without murmurs, gallops, or rubs. RESPIRATORY: Breath sounds equal bilaterally. No accessory muscle use. GASTROINTESTINAL: Abdomen soft, non-tender, nondistended. Pt update on day of discharge f/u for left foot infection patient very anxious to go home. he stated left foot a lot better. patient stated can ambulate with walker. patient's friend at bedside. he remains afebrile. Hospital Course 66-year-old man with Cellulitis right lower extremity Failed outpatient therapy Patient was initially on vancomycin and cefepime IV. patient did not do well on medication so Infectious Disease was consulted. Infectious disease discontinue vancomycin and added clindamycin and Levaquin. Cefepime was d/c. wound culture taken and gram stain is negative and no WBC. Pod was also consulted and recommended maxorb extra AG dressing, no bathing and shower. Since patient had drastically he was switch to PO clindamycin and levaquin. Patient had a right lower extremity ultrasound with finding of swallow thick and dorsal soft tissues without focal drainable fluid collection. Patient was given pain medication and pain controlled with regimen. Tobacco abuse Tobacco counseling provided Continue nicotine patch Normochromic normocytic anemia of chronic disease Monitor H&H Stable. Thrombocytosis most likely post inflammatory. stable. Benign hypertension-labile BP on Lopressor 25 mg every 12H and continue lisinopril Uncontrolled so added amlodipine. metoprolol d/ed. Hypokalemia Resolved post treatment Pt Condition on Discharge: Good Discharge Disposition: Disch w/ Home Health Serv Discharge Time: > 30 minutes Discharge Instructions DIET: Follow Instructions for: Heart Healthy Diet Activities you can perform: Regular-No Restrictions Other Activity Instructions: no bathing and showering Follow up Referrals: PCP Follow-up - 1 Week Podiatry - 10/21/16 with JUDI New Medications: Amlodipine (Amlodipine) 10 Mg Tab 10 MG PO DAILY Blood Pressure Management #30 Ref 0 TAB Clindamycin (Clindamycin) 300 Mg Cap 300 MG PO Q6H Infection #52 Ref 0 CAP Hydrocodone-Acetaminophen ([place]) 5-325 mg Tab 1 TAB PO Q4H PRN PAIN #20 Ref 0 TAB Lactobacillus Acidophilus (Lactinex) 1 Chew 1 TAB CHEW BID Nutritional Supplement #20 Ref 0 TAB Levofloxacin (Levofloxacin) 750 Mg Tablet 750 MG PO DAILY Infection #13 Ref 0 TAB Walker Rolling/GetGo (Walker Rolling/GetGo) 1 Mis Mis 1 EA .ROUTE DIRECTED #1 EA Continued Medications: Lisinopril (Lisinopril) 20 Mg Tab 20 MG PO DAILY #30 Ref 0 TAB Evelia Mccord MD Oct 16, 2016 11:46
[2016-10-16 11:49] LABS: BICARBONATE 27.8 MEQ/L (21.0-32.0); POTASSIUM 3.5 MEQ/L (3.5-5.1)
[2016-10-16] MEDS ORDERED: LACTCHW3 CHEW (12:00)
[2016-10-16] MEDS ORDERED: NORC5TAB PO (12:00)
[2016-10-16] MEDS ORDERED: AMLO10TA2 PO (12:00)
[2016-10-16] MEDS ORDERED: LEVO750T3 PO (12:00)
== END 2016-10-16 13:10 | disposition home health service (06) | DRG 603 ==
LOC: NEPE 09:35 → NEDA 12:47 → HOCB 14:59
PROVIDERS: ADMIT Family Medicine; ATTEND Family Medicine
PROC: 0H9MXZX Drainage of Right Foot Skin, External Approach, Diagnostic (ICD-10-PCS; principal; 2016-10-13)
DX: L03.115 Cellulitis of right lower limb (principal); E87.1 Hypo-osmolality and hyponatremia; I10 Essential (primary) hypertension; F17.210 Nicotine dependence, cigarettes, uncomplicated; Z72.89 Other problems related to lifestyle; D63.8 Anemia in other chronic diseases classified elsewhere; D75.89 Other specified diseases of blood and blood-forming organs; E87.6 Hypokalemia; R23.8 Other skin changes
CPT/HCPCS: 76882; 76937; 80048; 80053; 80202; 83605; 85007; 85025; 85027; 85610; 85730; 87040; 87070; 87205; 90471; 90714; 96365; 96375; J0692; J1650; J1885; J1940; J2270; J2405; J3370; J7030; J7050